=== PATIENT | male | born 1950 | race Caucasian/White ===

== ENCOUNTER 2017-09-22 13:47 | Observation (INO) | payer OTHER ==
--- NOTE | 2017-09-22 14:03 | PDOC ---
History of Present Illness - General Stated Complaint: DIZZINES Time Seen by Provider: 09/22/17 13:53 - History of Present Illness Initial Comments: 09/22/17 14:03 67 yo M with h/o HTN, and diverticulitis who arrives EMS with dizziness. 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 Also endorses multiple episodes of bilious, non bloody emesis. Symptom onset occurred while watching television. Patient reports controlled fall to ground and crawling to bathroom to vomit. Denies head/back/neck trauma. Denies anticoagulation. Denies fevers/chills, chest pain, SOB, weakness, sensory disturbances, tinnitus, urinary complaints, diarrhea, constipation, hematuria, BRBPR. Patient denies h/ o CVA/TIA, but daughter at bedside reports h/o multiple "mini strokes." MRI Lacunar infarct. Denies AR, CABG, Stent placement. PCP. Addie Barone. No neurologist . Past History - Past Medical History Allergies/Adverse Reactions: Allergies Allergy/AdvReac Type Severity Reaction Status Date / Time No Known Allergies Allergy Verified 09/22/17 15:27 Home Medications: Ambulatory Orders Amlodipine Besylate [Norvasc] 5 mg PO DAILY 02/14/13 Ibesartan/Hctz 1 dose PO DAILY 02/14/13 Lansoprazole [Prevacid] 15 mg PO DAILY 02/14/13 Unobtainable 09/22/17 CVA: Yes (tia) GI Disorders: Yes (hepatitis C) HTN: Yes - Suicide/Smoking/Psychosocial Hx Smoking Status: No Smoking History: Never smoked Number of Cigarettes Smoked Daily: 0 Review of Systems - Review of Systems Comments:: 09/22/17 14:42 GENERAL/CONSTITUTIONAL: No fever or chills. No weakness. HEAD, EYES, EARS, NOSE AND THROAT: No change in vision. No ear pain or discharge. No sore throat.- CARDIOVASCULAR: No chest pain or shortness of breath RESPIRATORY: No cough, wheezing, or hemoptysis. GASTROINTESTINAL: No nausea, vomiting, diarrhea or constipation. GENITOURINARY: No dysuria, frequency, or change in urination. MUSCULOSKELETAL: No joint or muscle swelling or pain. No neck or back pain. SKIN: No rash NEUROLOGIC: No headache, vertigo, loss of consciousness, or change in strength/ sensation. ENDOCRINE: No increased thirst. No abnormal weight change HEMATOLOGIC/LYMPHATIC: No anemia, easy bleeding, or history of blood clots. ALLERGIC/IMMUNOLOGIC: No hives or skin allergy. *Physical Exam - Physical Exam Comments: 09/22/17 14:42 GENERAL: Awake, alert, and fully oriented, in no acute distress HEAD: No signs of trauma, normocephalic, atraumatic EYES: PERRLA, EOMI, sclera anicteric, conjunctiva clear ENT: Left TM difficult to visualize d/t cerumen impactipon. Right TM normal to inspection. Hearing grossly normal, nares patent, oropharynx clear without exudates. Moist mucosa NECK: Normal ROM, supple, no lymphadenopathy, JVD, or masses LUNGS: No distress, speaks full sentences, clear to auscultation bilaterally HEART: Irregular rate. Normal hythm, normal S1 and S2, no murmurs, rubs or gallops, peripheral pulses normal and equal bilaterally. ABDOMEN: Soft, nontender, normoactive bowel sounds. No guarding, no rebound. No masses EXTREMITIES : Normal inspection, Normal range of motion, no edema. No clubbing or cyanosis. NEUROLOGICAL: Cranial nerves II through XII grossly intact.+ Horizontal nystagmus. WILFREDO intact. Absent dysmetria on FTN. Normal speech, gait not assesed. No focal sensorimotor deficits. SKIN: Warm, Dry, normal turgor, no rashes or lesions noted. Heart Score/ECG Review - History History: Slightly suspicious - Electrocardiogram EKG: Non specific repolarization disturbance - Age Age: >/= 65 - Risk Factors Risk Factors Heart Score: Yes Hx Hypercholesterolemia, Yes Hx Hypertension, Yes Hx Diabetes, Yes Smoking History Based on the list above the patient has:: >/=3 risk factors or Hx atherosclerotic disease - ECG Intrepretation Rhythm: PAC(s) - [place]: Normal - ST and T Early Repolarization: No Non Specific ST-T Wave changes: No - ECG Impressions Normal ECG: No Non-specific ST Elevation: No Ischemic Changes: No Bradycardia: Yes ED Treatment Course - LABORATORY CBC & Chemistry Diagram: 09/22/17 15:20 09/22/17 15:50 Medical Decision Making - Medical Decision Making 09/22/17 15:12 67 yo M with h/o HTN, diverticulitis s/p bowel ressection who arrives EMS with positional 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 Asx. with multiple episodes of bilious, non bloody emesis. Denies fevers/chills, chest pain, SOB, weakness, sensory disturbances, tinnitus, urinary complaints, abdominal pain, diarrhea, constipation, hematuria, BRBPR. MRI 08/25/2012 Lacunar infarct. Denies AR, CABG, Stent placement. Physical exam with bradycardia, horizontal nystagmus. Absent neuro deficits. PCP. Addie Barone. Peripheral vs. central vertigo. Vertigo present at rest, will obtain CT HEAD to evaluate for CVA. Clinical presentation most likely 2/2 BPPV d/t positional nature of vertigo. Will evaluate for electrolyte/metabolic disturbance, and infectious etiology. ED Course: CBC, CMP, UA Meclizine, Diphenhydramine EKG CT HEAD NON CON 09/22/17 15:[address] Monterroso who performed bowel ressection, he is not concerned of diverticulitis recurrence, and agrees with current ED treatment/course. 09/22/17 16:12 CBC/CMP: Unremarkable 09/22/17 16:33 EKG: Sinus bradycardia with scattered PAC's and absent LALITA, STD, or TWI. 09/22/17 16:34 CT HEAD: Small chronic right cortical infarct. No acute changes. 09/22/17 17:[address] Cuevas, he will follow this patient with MRI. 09/22/17 19:[address] Tomlin obs. *DC/Admit/Observation/Transfer Diagnosis at time of Disposition: Vertigo - Discharge Dispostion Disposition: HOME Condition at time of disposition: Stable Admit: Yes - Referrals - Patient Instructions - Post Discharge Activity
[2017-09-22] MEDS ORDERED: MECLIZINE HCL 25 MG TABLET (FP) PO ONE (14:34)
[2017-09-22] MEDS ORDERED: ONDANSETRON 4 MG/2 ML VIAL IVPB ONE (14:34)
--- NOTE | 2017-09-22 14:59 | PDOC ---
Attending Attestation - Resident Resident Name: Eliot Chackoson - ED Attending Attestation I have performed the following: I have examined & evaluated the patient, The case was reviewed & discussed with the resident, I agree w/resident's findings & plan, Exceptions are as noted - HPI HPI: 09/22/17 14:58 67y M hx HTN, +cva (lacunar infarcts), polysubstance abuse, of prior abdominal surgeries, presents with complaint of diverticulitis s/p sigmoid resection, presents with complaint of vertigo while watching TV. Pt endorses severe room spinning dizziness, nausea/vomiting, worse when he is moving his head but also present when he is sitting still. The pt denie sany headache, double vision, speech problems, neck pain, cp, palpitations, abd pain, back pain, tinitus, numbness.tingling, weakness. No prior hitsory of vertigo on exam the patient has a nonfocal physical exam: he does have a persistent horizontal nystagmus normal finger to nose, normal rapid alternating movements. strength intact and symmetric in upper/lower extremities sensation symmetric and intact in upper/lower extremities/face cn2-12 intact cardiac: bradycardic, slightly irregular pulm: cta abd: soft, minimal tenderness in RLQ (notes this is chronic, unchanged since his surgery last year) consider possible central vs pierpheral vertigo? pt treated with meclizine, zofran will ck labs to ro anemia consider cardiac cause as pt is notably bradycardic ct head to r/o cva, but janette need further imaging to r/o posterior event no neck pain , bruit or other neuro symptoms to suggest vertebral dissection - Physicial Exam PE: 09/23/17 08:05 see above - Medical Decision Making 09/23/17 08:05 see above Heart Score/ECG Review - ECG Impressions Comment:: 09/22/17 16:31 Twelve-lead EKG was performed and reviewed by me. Rate of [address]-T wave changes suggestive of acute ischemia Consistent HI interval no signs of a heart block sinus bradycardia with PACs
[2017-09-22] MEDS ORDERED: MECLIZINE HCL 25 MG TABLET (FP) ONE (15:11)
[2017-09-22] MEDS ORDERED: ONDANSETRON 4 MG/2 ML VIAL ONE (15:11)
[2017-09-22 15:53] LABS: BASO % 0.7 % (0-2.0); EOS % 1.2 % (0-4.5); HEMATOCRIT 45.6 % (35.4-49); HEMOGLOBIN 15.8 GM/dL (11.7-16.9); LYMPH % 15.7 % (8-40); MCH 33.8 pg (25.7-33.7); MCHC 34.5 g/dl (32.0-35.9); MEAN CELL VOLUME 97.9 fl (80-96); MEAN PLT VOLUME 10.2 fl (7.5-11.1); MONO % 7.8 % (3.8-10.2); NEUT % 74.6 % (42.8-82.8); PLATELET COUNT 133 K/MM3 (134-434); RBC 4.66 M/mm3 (4.00-5.60); RDW 13.1 % (11.9-15.9); WHITE BLOOD COUNT 8.2 K/mm3 (4.0-10.0)
[2017-09-22 16:08] LABS: INR 1.12 (0.82-1.09); PROTHROMBIN TIME (PATIENT) 12.7 SEC (9.98-11.88)
[2017-09-22 16:27] LABS: URINE APPEARANCE CLOUDY; URINE BILIRUBIN NEGATIVE (NEGATIVE); URINE BLOOD NEGATIVE (NEGATIVE); URINE COLOR YELLOW; URINE GLUCOSE (UA) NEGATIVE (NEGATIVE); URINE KETONE NEGATIVE (NEGATIVE); URINE LEUK ESTERASE NEGATIVE (NEGATIVE); URINE NITRITE NEGATIVE (NEGATIVE); URINE PROTEIN NEGATIVE (NEGATIVE); URINE UROBILINOGEN NEGATIVE mg/dL (0.2-1.0)
[2017-09-22 16:35] LABS: ALBUMIN 3.9 g/dl (3.4-5.0); ALK PHOS 56 U/L (45-117); BILIRUBIN,TOTAL 0.6 mg/dL (0.2-1.0); BLOOD UREA NITROGEN 16 mg/dL (7-18); CALCIUM 8.7 mg/dL (8.5-10.1); CO2 29 mmol/L (21-32); GLUCOSE,RANDOM 102 mg/dL (74-106); SGPT/ALT 17 U/L (12-78); SODIUM 140 mmol/L (136-145); TOT PROT 6.7 g/dl (6.4-8.2)
[2017-09-22 16:36] LABS: ANION GAP 7 (8-16); CHLORIDE 104 mmol/L (98-107); POTASSIUM 4.7 mmol/L (3.5-5.1); SGOT/AST 18 U/L (15-37)
[2017-09-22] MEDS ORDERED: ASPIRIN 81 MG CHEWABLE TABLETS PO ONE (16:40)
[2017-09-22] MEDS ORDERED: ASPIRIN 81 MG CHEWABLE TABLETS ONE (17:18)
[2017-09-22] MEDS ORDERED: diazePAM 5 MG TABLET PO ONE (17:55)
[2017-09-22] MEDS ORDERED: diazePAM 5 MG TABLET ONE (18:16)
--- NOTE | 2017-09-22 18:20 | HP ---
CHIEF COMPLAINT: Sudden onset vertigo and vomiting PCP: Dr. Barone HISTORY OF PRESENT ILLNESS: 67 year-old male with a PMH significant for HTN, HLD, CVA/TIA, and diverticulitis s/p sigmoid resection (2017). Presents to the ED with a complaint of vertigo. At around 1:00pm, while watching TV, patient developed severe room-spinning dizziness. He became nauseous and had multiple bouts of vomiting. The dizziness is worse with movement, but is also present when staying still. There was no prodrome. Denies headache, double vision, speech problems, neck pain, tinnitus, numbness, tingling, and weakness. Denies chest pain, palpitations, SOB, [place], and lower extremity edema. ER course was notable for: (1) CT head: no acute process (2) ECG sinus philip @ 49bpm (3) ASA 243mg x 1 Recent Travel: No PAST MEDICAL HISTORY: Hypertension Hyperlipidemia CVA/TIA Polysubstance abuse Hepatitis C Diverticulitis PAST SURGICAL HISTORY: Sigmoid resection Social History: Smoking: denies Alcohol: social Drugs: denies Family History: Allergies No Known Allergies Allergy (Verified 09/22/17 15:27) HOME MEDICATIONS: Home Medications Medication Instructions Recorded Amlodipine Besylate [Norvasc] 5 mg PO DAILY 02/14/13 Ibesartan/Hctz 1 dose PO DAILY 02/14/13 Lansoprazole [Prevacid] 15 mg PO DAILY 02/14/13 Unobtainable 09/22/17 REVIEW OF SYSTEMS CONSTITUTIONAL: Absent: fever, chills, diaphoresis, generalized weakness, malaise, loss of appetite, weight change HEENT: Absent: rhinorrhea, nasal congestion, throat pain, throat swelling, difficulty swallowing, mouth swelling, ear pain, eye pain, visual changes CARDIOVASCULAR: Absent: chest pain, syncope, palpitations, irregular heart rate, lightheadedness , peripheral edema RESPIRATORY: Absent: cough, shortness of breath, dyspnea with exertion, orthopnea, wheezing, stridor, hemoptysis GASTROINTESTINAL: Absent: abdominal pain, abdominal distension, nausea, vomiting, diarrhea, constipation, melena, hematochezia GENITOURINARY: Absent: dysuria, frequency, urgency, hesitancy, hematuria, flank pain, genital pain MUSCULOSKELETAL: Absent: myalgia, arthralgia, joint swelling, back pain, neck pain SKIN: Absent: rash, itching, pallor HEMATOLOGIC/IMMUNOLOGIC: Absent: easy bleeding, easy bruising, lymphadenopathy, frequent infections ENDOCRINE: Absent: unexplained weight gain, unexplained weight loss, heat intolerance, cold intolerance NEUROLOGIC: +room spinning dizziness with associated nausea and vomiting Absent: headache, focal weakness or paresthesias, unsteady gait, seizure, mental status changes, bladder or bowel incontinence PSYCHIATRIC: Absent: anxiety, depression, suicidal or homicidal ideation, hallucinations. PHYSICAL EXAMINATION Vital Signs - 24 hr 09/22/17 09/22/17 13:55 17:55 Temperature 97.2 F L Pulse Rate 79 Pulse Rate [ 49 L Apical] Respiratory 18 Rate Blood Pressure 174/84 Blood Pressure 159/88 [Left Arm] O2 Sat by Pulse 95 99 Oximetry (%) GENERAL: Awake, alert, and fully oriented, in no acute distress. HEAD: Normal with no signs of trauma. EYES: Pupils equal, round and reactive to light, extraocular movements intact, sclera anicteric, conjunctiva clear. No lid lag. EARS, NOSE, THROAT: Ears normal, nares patent, oropharynx clear without exudates. Moist mucous membranes. NECK: ROM not tested. No lymphadenopathy, JVD, or masses. LUNGS: Breath sounds equal, clear to auscultation bilaterally. No wheezes, and no crackles. No accessory muscle use. HEART: Regular rate and rhythm, normal S1 and S2 ABDOMEN: Soft, nontender, not distended, normoactive bowel sounds, no guarding, no rebound, no masses. MUSCULOSKELETAL: Normal range of motion at all joints. No bony deformities or tenderness. No CVA tenderness. UPPER EXTREMITIES: 2+ pulses, warm, well-perfused. No cyanosis. No clubbing. No peripheral edema. LOWER EXTREMITIES: 2+ pulses, warm, well-perfused. No calf tenderness. No peripheral edema. NEUROLOGICAL: Cranial nerves II-XII intact. Normal speech. +Finger to nose. Mild nystagamus. Unable to stand due to dizziness. PSYCHIATRIC: Cooperative. Good eye contact. Appropriate mood and affect. SKIN: Warm, dry, normal turgor Laboratory Results - last 24 hr 09/22/17 09/22/17 09/22/17 15:20 15:20 15:50 WBC 8.2 D RBC 4.66 Hgb 15.8 Hct 45.6 MCV 97.9 H MCH 33.8 H MCHC 34.5 RDW 13.1 Plt Count 133 L D MPV 10.2 Neutrophils % 74.6 Lymphocytes % 15.7 Monocytes % 7.8 Eosinophils % 1.2 Basophils % 0.7 PT with INR 12.70 H INR 1.12 Sodium 140 Potassium 4.7 D Chloride 104 Carbon Dioxide 29 Anion Gap 7 L BUN 16 Creatinine 1.0 Creat Clearance w eGFR > 60 Random Glucose 102 Calcium 8.7 Total Bilirubin 0.6 AST 18 D ALT 17 D Alkaline Phosphatase 56 D Total Protein 6.7 Albumin 3.9 Urine Color Urine Appearance Urine pH Ur Specific [place] Urine Protein Urine Glucose (UA) Urine Ketones Urine Blood Urine Nitrite Urine Bilirubin Urine Urobilinogen Ur Leukocyte Esterase 09/22/17 16:10 WBC RBC Hgb Hct MCV MCH MCHC RDW Plt Count MPV Neutrophils % Lymphocytes % Monocytes % Eosinophils % Basophils % PT with INR INR Sodium Potassium Chloride Carbon Dioxide Anion Gap BUN Creatinine Creat Clearance w eGFR Random Glucose Calcium Total Bilirubin AST ALT Alkaline Phosphatase Total Protein Albumin Urine Color Yellow Urine Appearance Cloudy Urine pH 7.0 Ur Specific [place] 1.013 Urine Protein Negative Urine Glucose (UA) Negative Urine Ketones Negative Urine Blood Negative Urine Nitrite Negative Urine Bilirubin Negative Urine Urobilinogen Negative Ur Leukocyte Esterase Negative ASSESSMENT/PLAN 67 year-old male with a PMH significant for HTN, HLD, CVA/TIA, and diverticulitis s/p sigmoid resection. Presents to the ED with a complaint of vertigo with associated nausea and vomiting. Vertigo with nausea/vomiting --symptoms unrelieved with meclizine valium, benadryl, Zofran h/o CVA/TIA --MRI 2011: right periventricular white matter old lacunar infarct --CT head today: small chronic right frontal subcortical infarct, no acute pathology --MRI/MRA brain w/and w/o contrast ordered --Dr. Chowdhury contacted by ED, will consult --full dose ASA given; start statin --US carotids --Echo Hypertension --hold antihypertensives for now, BP 159/88 Hyperlipidemia --start Lipitor Diverticulosis s/p sigmoid resection --no acute issues
[2017-09-22] MEDS ORDERED: ATORVASTATIN CA 80 MG TABLET (FP) PO STA (19:06)
[2017-09-22 19:42] LABS: COCAINE, UR NEGATIVE ng/ml (CUTOFF=300); METHADONE, UR NEGATIVE ng/ml (CUTOFF=300); OPIATES, URI NEGATIVE ng/ml (CUTOFF=300); PHENCYCLIDINE,URINE NEGATIVE ng/ml (CUTOFF=25); URINE AMPHETAMINES NEGATIVE ng/ml (CUTOFF=500); URINE BARBITURATES NEGATIVE ng/ml (CUTOFF=200); URINE BENZODIAZEPINES NEGATIVE ng/ml (CUTOFF=200)
[2017-09-23 08:28] LABS: BASO % 0.8 % (0-2.0); EOS % 2.3 % (0-4.5); HEMATOCRIT 50.1 % (35.4-49); HEMOGLOBIN 16.8 GM/dL (11.7-16.9); LYMPH % 32.9 % (8-40); MCH 33.5 pg (25.7-33.7); MCHC 33.5 g/dl (32.0-35.9); MEAN PLT VOLUME 10.1 fl (7.5-11.1); MONO % 9.4 % (3.8-10.2); NEUT % 54.6 % (42.8-82.8); PLATELET COUNT 97 K/MM3 (134-434); RBC 5.01 M/mm3 (4.00-5.60); RDW 13.2 % (11.9-15.9); WHITE BLOOD COUNT 6.8 K/mm3 (4.0-10.0)
[2017-09-23 08:35] LABS: INR 1.05 (0.82-1.09); PROTHROMBIN TIME (PATIENT) 11.9 SEC (9.98-11.88)
[2017-09-23 08:38] LABS: ACTIVATED PTT 28.2 SECONDS (26.9-34.4)
[2017-09-23 08:47] LABS: ALBUMIN 3.8 g/dl (3.4-5.0); ANION GAP 13 (8-16); BILIRUBIN,TOTAL 0.8 mg/dL (0.2-1.0); BLOOD UREA NITROGEN 14 mg/dL (7-18); CALCIUM 9.1 mg/dL (8.5-10.1); CHLORIDE 105 mmol/L (98-107); CO2 22 mmol/L (21-32); CREATININE 1.2 mg/dL (0.7-1.3); GLUCOSE,RANDOM 89 mg/dL (74-106); MAGNESIUM 2.3 mg/dL (1.8-2.4); POTASSIUM 4.1 mmol/L (3.5-5.1); SGOT/AST 18 U/L (15-37); SGPT/ALT 20 U/L (12-78); SODIUM 140 mmol/L (136-145); TOT PROT 6.8 g/dl (6.4-8.2)
[2017-09-23 08:48] LABS: ALK PHOS 56 U/L (45-117)
--- NOTE | 2017-09-23 08:57 | DS ---
Physical Examination Vital Signs: Vital Signs Temperature 97.8 F 09/23/17 01:58 Pulse Rate 43 L 09/23/17 07:01 Respiratory Rate 15 09/23/17 07:01 Blood Pressure 154/80 09/23/17 07:01 O2 Sat by Pulse Oximetry (%) 100 09/23/17 07:01 Findings/Remarks: still with periods of vertigo better than yesterday Cardiovascular: Yes: Regular Rate and Rhythm Respiratory: Yes: Regular, CTA Bilaterally Gastrointestinal: Yes: Normal Bowel Sounds, Soft Neurological: Yes: Alert, Oriented, Other (vertigo) Labs: CBC, BMP 09/23/17 07:10 09/23/17 06:30 Discharge Summary Reason For Visit: SYNCOPE Current Active Problems Vertigo (Acute) Hospital Course: 67 year-old male with a PMH significant for HTN, HLD, CVA/TIA, and diverticulitis s/p sigmoid resection. Presents to the ED with a complaint of vertigo with associated nausea and vomiting. Vertigo with nausea/vomiting --symptoms unrelieved with meclizine valium, benadryl, Zofran h/o CVA/TIA --MRI 2012: right periventricular white matter old lacunar infarct --CT head today: small chronic right frontal subcortical infarct, no acute pathology --MRI/MRA brain w/and w/o contrast negative for new cva --Dr. Chowdhury evaluated pt and cleared for dc --asa --US carotids as outpatient --Echo Hypertension --resume antihypertensives for now, BP 159/88 Hyperlipidemia --start Lipitor Diverticulosis s/p sigmoid resection --no acute issues Condition: Stable - Instructions Referrals: Addie Baroen MD [Primary Care Provider] - 09/24/17 Disposition: HOME - Home Medications Comprehensive Discharge Medication List: Ambulatory Orders Amlodipine Besylate [Norvasc -] 5 mg PO DAILY 02/14/13 Ibesartan/Hctz 1 dose PO DAILY 02/14/13 Lansoprazole [Prevacid -] 15 mg PO DAILY 02/14/13 Aspirin Coated [Ecotrin -] 81 mg PO DAILY tablet.ec 09/23/17 Meclizine HCl [Antivert -] 25 mg PO TID #90 tablet 09/23/17
--- NOTE | 2017-09-23 09:11 | CON.NEURO ---
Consult - Smoking History Smoking history: Never smoked Aproximately how many cigarettes per day: 0 Home Medications - Allergies Allergies/Adverse Reactions: Allergies Allergy/AdvReac Type Severity Reaction Status Date / Time No Known Allergies Allergy Verified 09/22/17 15:27 - Home Medications Home Medications: Ambulatory Orders Amlodipine Besylate [Norvasc -] 5 mg PO DAILY 02/14/13 Ibesartan/Hctz 1 dose PO DAILY 02/14/13 Lansoprazole [Prevacid -] 15 mg PO DAILY 02/14/13 Aspirin Coated [Ecotrin -] 81 mg PO DAILY tablet.ec 09/23/17 Meclizine HCl [Antivert -] 25 mg PO TID #90 tablet 09/23/17 Physical Exam-Neuro Vital Signs: Vital Signs Temperature 97.8 F 09/23/17 01:58 Pulse Rate 43 L 09/23/17 07:01 Respiratory Rate 15 09/23/17 07:01 Blood Pressure 154/80 09/23/17 07:01 O2 Sat by Pulse Oximetry (%) 100 09/23/17 07:01 Labs: CBC, BMP 09/23/17 07:10 09/23/17 06:30 INR, PTT INR 1.05 (0.82-1.09) 09/23/17 06:30 Assessment/Plan cc Episode of Vertigo HPI 67 year old male hisotry of HTN, HLD , CVA/TIA presented to hospital for severe vetigo senation for one day. He denies dysphagia, dysarthria, loc, weakness or numbness. He i sgetting better. His Blood pressure was slightly high during admission. He did have ct head , mri of brain which was normal. Past Medical History as above Hisotyr of Sigmoid resection NKD ROS,FH,SH HOME MEDICATIONS: Home Medications Medication Instructions Recorded Amlodipine Besylate [Norvasc] 5 mg PO DAILY 02/14/13 Ibesartan/Hctz 1 dose PO DAILY 02/14/13 Lansoprazole [Prevacid] 15 mg PO DAILY 02/14/13 Unobtainable 09/22/17 Neurological Exmaination Alert oriented x 3 , speech is normal able to follow command eomi , pupils is reactive , there is nystagmus on left side gaze strength is normal, sensation is normal FTN , HTN is normal CT head and mri of brain is normal Assesment- Most urena Benign Positional Vertigo , no evidence of cerebellar dysfunction or Brain stem infarct Plan- Can follow up with me outpatient - Meclizine prn -Advice few days of rest - May see PT if symptoms persits Thanking you so much Román Chowdhury MD
[2017-09-23] MEDS ORDERED: ASPIRIN COATED 81 MG TABLET.EC PO SCH (10:00)
--- NOTE | 2017-09-23 10:31 | EKG ---
Test Reason : Blood Pressure : / mmHG Vent. Rate : 048 BPM Atrial Rate : 048 BPM P-R Int : 154 ms QRS Dur : 084 ms QT Int : 506 ms P-R-T Axes : 033 026 009 degrees QTc Int : 452 ms SINUS BRADYCARDIA WITH SINUS ARRHYTHMIA MODERATE VOLTAGE CRITERIA FOR LVH, MAY BE NORMAL VARIANT NONSPECIFIC ST ABNORMALITY ABNORMAL ECG WHEN COMPARED WITH ECG OF 22-SEP-2017 15:51, PREMATURE ATRIAL COMPLEXES ARE NO LONGER PRESENT Confirmed by JOHN FRAZIER, RASHEED ([id number]) on 09/23/2017 10:30:33 AM Referred By: Jaquelin CRUZ Confirmed By:RASHEED LOPEZ MD
[2017-09-23] MEDS ORDERED: MECLIZINE HCL 25 MG TABLET (FP) PO ONE (10:45)
[2017-09-23] MEDS ORDERED: ASPIRIN COATED 81 MG TABLET.EC ONE (10:47)
[2017-09-23] MEDS ORDERED: MECLIZINE HCL 25 MG TABLET (FP) ONE (10:47)
--- NOTE | 2017-09-23 10:51 | EKG ---
Test Reason : Blood Pressure : / mmHG Vent. Rate : 049 BPM Atrial Rate : 049 BPM P-R Int : 154 ms QRS Dur : 086 ms QT Int : 532 ms P-R-T Axes : 042 023 008 degrees QTc Int : 480 ms SINUS BRADYCARDIA WITH PREMATURE ATRIAL COMPLEXES NONSPECIFIC ST AND T WAVE ABNORMALITY PROLONGED QT ABNORMAL ECG WHEN COMPARED WITH ECG OF 14-FEB-2013 12:13, PREMATURE ATRIAL COMPLEXES ARE NOW PRESENT NONSPECIFIC T WAVE ABNORMALITY HAS REPLACED INVERTED T WAVES IN INFERIOR LEADS NONSPECIFIC T WAVE ABNORMALITY NOW EVIDENT IN LATERAL LEADS QT HAS LENGTHENED Confirmed by MD Dick, Michael ([id number]) on 09/23/2017 10:51:24 AM Referred By: Confirmed By:Michael Jennings MD
[2017-09-23 12:06] LABS: PLATELET ESTIMATE DECREASED
--- NOTE | 2017-09-23 13:51 | CON.CARD ---
Consult Consult Specialty:: Cardiology Reason for Consultation:: Dizziness - History of Present Illness Chief Complaint: Vertigo History of Present Illness: This is a 67 year old male with a PMH of HTN. He presents with sudden onset vertigo with the room spinning, worse with head movement. This was associated with vomiting. Patient reports controlled fall to ground and crawling to bathroom to vomit. The symptoms have resolved. His present HR is 48 BPM, minimum HR noted was 43 BPM. - Smoking History Smoking history: Never smoked Aproximately how many cigarettes per day: 0 Home Medications - Allergies Allergies/Adverse Reactions: Allergies Allergy/AdvReac Type Severity Reaction Status Date / Time No Known Allergies Allergy Verified 09/22/17 15:27 - Home Medications Home Medications: Ambulatory Orders Ibesartan/Hctz 1 dose PO DAILY 02/14/13 Lansoprazole [Prevacid -] 15 mg PO DAILY 02/14/13 Aspirin Coated [Ecotrin -] 81 mg PO DAILY tablet.ec 09/23/17 Meclizine HCl [Antivert -] 25 mg PO TID #90 tablet 09/23/17 Review of Systems Unable to obtain ROS, reason: As per HPI Vital Signs: Vital Signs Temperature 97.8 F 09/23/17 01:58 Pulse Rate 48 L 09/23/17 10:00 Respiratory Rate 16 09/23/17 10:00 Blood Pressure 166/90 09/23/17 10:00 O2 Sat by Pulse Oximetry (%) 96 09/23/17 10:00 Constitutional: Yes: Well Nourished HENT: Yes: WNL Neck: Yes: WNL Respiratory: Yes: CTA Bilaterally Gastrointestinal: Yes: Soft Cardiovascular: Yes: Regular Rate and Rhythm (NL S1s2, no MRHG) JVD: No Extremities: Yes: WNL Edema: No Neurological: Yes: Alert, Oriented (Grossly non focal) - Other Data Labs, Other Data: CBC, BMP 09/23/17 07:10 09/23/17 06:30 INR, PTT INR 1.05 (0.82-1.09) 09/23/17 06:30 Assessment/Plan Dizziness Positional Vertigo Heart rates are slow but are not the likely cause of his symptoms (they may be secondary to high vagal tone from recent nausea/vomitting) The bradycardia can be followed as an outpatient with an Event Monitor and a an exercise stress test to document augmentation of the heart rates. The patient told me he is followed by a Ditch [facility] in [place].
[2017-09-23 14:09] VITALS: BMI 27.3
[2017-09-23 15:27] VITALS: BP 166/90; PULSE 50; TEMP 98.1
[2017-09-23] MEDS ORDERED: ATORVASTATIN CA 80 MG TABLET (FP) PO SCH (22:00)
== END 2017-09-23 16:00 | disposition home or self-care (01) ==
LOC: JER 13:47 → JERBED 17:35
PROVIDERS: ADMIT Family Medicine; ATTEND Family Medicine
PROC: 3E033GC Introduction of Other Therapeutic Substance into Peripheral Vein, Percutaneous Approach (ICD-10-PCS; principal; 2017-09-22)
DX: R42 Dizziness and giddiness (principal); R11.2 Nausea with vomiting, unspecified; I10 Essential (primary) hypertension; E78.5 Hyperlipidemia, unspecified; B18.2 Chronic viral hepatitis C; Z86.73 Personal history of transient ischemic attack (TIA), and cerebral infarction without residual deficits
CPT/HCPCS: 36415; 70450-TC; 70544-TC; 70551-TC; 71045-TC; 80053; 80307; 81003; 83735; 85025; 85610; 85730; 93005; 93010; 93306-TC; 93880-TC; 96374; 96375; 99285-25; G0378

== ENCOUNTER 2020-02-03 18:40 | Observation (INO) | payer OTHER ==
[2020-02-03 20:18] LABS: ALBUMIN 4.5 g/dl (3.4-5.0); BILIRUBIN,TOTAL 1.2 mg/dl (0.2-1); CALCIUM 9.7 mg/dl (8.5-10); POTASSIUM 4.3 mmol/L (3.5-5.1); TOT PROT 7.4 g/dl (6.4-8.2)
[2020-02-03 20:27] LABS: BASO % 0.9 % (0-2.0); EOS % 1.8 % (0-4.5); HEMATOCRIT 44.6 % (35.4-49); HEMOGLOBIN 15.9 GM/dl (11.7-16.9); LYMPH % 24.6 % (8-40); MCH 34.2 pg (25.7-33.7); MCHC 35.6 g/dl (32.0-35.9); MEAN CELL VOLUME 96.2 fl (80-96); MEAN PLT VOLUME 9.1 fl (7.5-11.1); MONO % 9.7 % (3.8-10.2); PLATELET COUNT 185 K/MM3 (134-434); RBC 4.63 M/mm3 (4.00-5.60); RDW 11.8 % (11.9-15.9); WHITE BLOOD COUNT 6.8 K/mm3 (4.0-10.8)
--- NOTE | 2020-02-03 20:32 | PDOC ---
Documentation entered by Sarina Arredondo SCRIBE, acting as scribe for Kim Gaytan MD. Kim Gaytan MD: This documentation has been prepared by the Arnulfo lazaro Nirvannie, SCRIBE, under my direction and personally reviewed by me in its entirety. I confirm that the documentation accurately reflects all work, treatment, procedures, and medical decision making performed by me. History of Present Illness - General Chief Complaint: Chest Pain Stated Complaint: CHEST PAIN Time Seen by Provider: 02/03/20 19:08 History Source: Patient Exam Limitations: No Limitations - History of Present Illness Initial Comments: 02/03/20 19:59 HPI: The patient is a 69 year old male with a significant past medical history of hypertension, hyperlipidemia, CVA/TIA, Hepatitis C, and diverticulitis who pre sents to the ED with 1 day of constant chest pain. As per patient, his chest pain onset this morning awakening him from his slumber with associated intermittent sharp/stabbing sensations lasting a few seconds and mild shortness of breath. He describes the pain as worsening with exertion, deep inspiration, and palpation to the midsternal chest. Patient was evaluated in urgent care prior to his arrival to which time he was advised to report to the ED for further evaluation after EKG. The patient follows with cardiology and was told his mitral valve does not close all the way and his heart skips a beat. He denies any diaphoresis or palpitations. PAST MEDICAL HISTORY: Hypertension, hyperlipidemia, CVA/TIA, Hepatitis C, and diverticulitis PAST SURGICAL HISTORY: Sigmoid resection FAMILY HISTORY: Paternal secondary to NH at age 49. SOCIAL HISTORY: Pt lives with family and is employed. MEDICATIONS: reviewed ALLERGIES: As per nursing notes ROS: General: No fevers or chills, no weakness, no weight loss HEENT: No change in vision. No sore throat,. No ear pain CardioVascular: +chest pain +shortness of breath Respiratory: No cough, or wheezing. Gastrointestinal: no nausea, vomiting, diarrhea or constipation, No rectal bleeding Genitourinary: No dysuria, hematuria, or frequency Musculoskeletal: No joint or muscle pain or swelling Neurologic: No headache, vertigo, dizziness or loss of consciousness Psychiatric: nor depression Skin: No rashes or easy bruising Endocrine: no increased thirst or abnormal weight change Allergic: no skin or latex allergy All other systems reviewed and normal Physical Exam: General: Well-nourished well-developed individual, no acute distress HEENT: Throat: Normal, tonsils normal, no erythema or exudate Neck: Supple, no meningeal signs, no lymphadenopathy Eyes:Pupils equal reactive and round, extraocular motion intact Chest: +Reproducible tenderness on palpation to the subxiphoid area. Cardiac: S1-S2 normal, regular rate and rhythm, no murmurs rubs or gallops Respiratory: Lungs clear to auscultation bilateral Abdomen: Soft, nondistended, normal bowel sounds, nontender to palpation diffusely Extremities: Warm, dry, no cyanosis, clubbing, or edema Skin: No rashes Neuro: Alert and oriented x3, nonfocal exam, grossly intact, normal gait Psych: Normal mood and affect 02/03/20 20:31 This is a 69-year-old male with multiple cardiac risk factors who denies any specific cardiac history. Patient however did have a echo and cardiac stress test back in 2018 secondary to some chest pain that he had. Patient comes in complaining of constant chest pain since this morning that woke him up with intermittent exacerbations that last a few seconds of a sharp component. Patient says he has some mild shortness of breath but denies any cough, congestion, nausea or diaphoresis. Patient denies any radiation. Pain is reproduced on palpation and is localized to the subxiphoid area. Otherwise hip exam was normal. Patient has a heart score of 5 based upon his risk factors and age Patient will be admitted to an observation bed and ruled out, Chest x-ray shows a cardiomegaly otherwise no acute pathology EKG shows a sinus bradycardia with some premature supraventricular complexes otherwise no acute ST-T wave changes and otherwise normal. Past History - Past Medical History Allergies/Adverse Reactions: Allergies Allergy/AdvReac Type Severity Reaction Status Date / Time No Known Allergies Allergy Verified 02/03/20 19:09 Home Medications: Ambulatory Orders Amlodipine Besylate 10 mg PO DAILY 02/03/20 Aspirin [Aspirin EC] 650 mg PO ONCE 02/03/20 Hydrochlorothiazide 25 mg PO DAILY 02/03/20 Irbesartan [Avapro] 300 mg PO DAILY 02/03/20 Potassium Chloride [K-Dur -] 10 meq PO DAILY 02/03/20 CVA: Yes (tia) COPD: No Diabetes: Yes GI Disorders: Yes (hepatitis C) HTN: Yes Hypercholesterolemia: Yes - Psycho Social/Smoking Cessation Hx Smoking Status: No Smoking History: Never smoked Number of Cigarettes Smoked Daily: 0 Cardiac Specific PMH - Complaint Specific PMHX Abdominal Aortic Aneurysm: No Angina: No Cardiac Arrhythmia: No Cardiac Stent: No GERD: Yes Pacemaker: No Pulmonary Embolus: No Valvular Heart Disease: No Peripheral Vascular Disease: No *Physical Exam - Vital Signs Last Vital Signs Temp Pulse Resp BP Pulse Ox 98.4 F 66 15 152/73 98 02/03/20 18:44 02/03/20 18:44 02/03/20 18:44 02/03/20 18:44 02/03/20 18:44 Heart Score/ECG Review - History History: Slightly suspicious - Electrocardiogram EKG: Non specific repolarization disturbance - Age Age: >/= 65 - Risk Factors Risk Factors Heart Score: Yes Hx Hypercholesterolemia, Yes Hx Hypertension, Yes Positive family hx of cardiac disease Based on the list above the patient has:: >/=3 risk factors or Hx atherosclerotic disease - Troponin Troponin: </= normal limit - Score Heart Score - Total: 5 ED Treatment Course - LABORATORY CBC & Chemistry Diagram: 02/03/20 19:45 02/03/20 19:45 - ADDITIONAL ORDERS Additional order review: Laboratory Results 02/03/20 02/03/20 02/03/20 20:20 19:45 19:45 Sodium 141 Potassium 4.3 Chloride 103 Carbon Dioxide 27 Anion Gap 11 BUN 17.0 Creatinine 1.0 Est GFR (CKD-EPI)AfAm 87.99 Est GFR (CKD-EPI)NonAf 75.92 Random Glucose 103 Calcium 9.7 Total Bilirubin 1.2 H AST 17 ALT 22 Alkaline Phosphatase 55 Creatine Kinase 75 Troponin I < 0.03 Total Protein 7.4 Albumin 4.5 Urine Color Yellow Urine Appearance Clear Urine pH 6.0 Urine Protein Negative Urine Glucose (UA) Negative Urine Ketones Negative Urine Blood Negative Urine Nitrite Negative Urine Bilirubin Negative Urine Urobilinogen 0.2 Ur Leukocyte Esterase Negative 02/03/20 19:45 RBC 4.63 MCV 96.2 H MCHC 35.6 RDW 11.8 L MPV 9.1 Neutrophils % 63.0 Lymphocytes % 24.6 Monocytes % 9.7 Eosinophils % 1.8 Basophils % 0.9 - RADIOLOGY Radiology Studies Ordered: Category Date Time Status CHEST X-RAY PORTABLE* [RAD] Stat Radiology 02/03/20 19:23 Taken Discharge - Discharge Information Problems reviewed: Yes Clinical Impression/Diagnosis: Chest pain at rest Condition: Good - Admission Yes - Follow up/Referral Referrals: Addie Barone MD [Primary Care Provider] - - Patient Discharge Instructions - Post Discharge Activity
--- NOTE | 2020-02-03 22:16 | HP ---
CHIEF COMPLAINT: Chest pain PCP: HISTORY OF PRESENT ILLNESS: The patient is a 69 year old male with a significant past medical history of hypertension, hyperlipidemia, CVA/TIA, Hepatitis C, and diverticulitis s/p sigmoid resection (2017) who presents to the ED with 1 day of intermittent midsternal chest pain. As per patient, his chest pain onset this morning 3-4am awakening him with associated intermittent sharp/stabbing sensations lasting a few seconds and mild shortness of breath. He describes the pain as worsening with exertion, deep inspiration, and palpation to the midsternal chest, mild dizziness. pt reports last seen by Dimmer Board Operator 2 years ago when admitted in [facility]. has not followed up with [facility]mer Board Operator as outpatient. pt denies chills, fever, headache, abd pain, diarrhea, constipation, dysuria, urinary frequency, denies left arm pain or numbness ER course was notable for: (1) EKG sinus philip (2) CBC, CMP unremarkable (3) 1st trop < 0.03 Recent Travel: none PAST MEDICAL HISTORY: hypertension, GERD, hyperlipidemia, CVA/TIA, Hepatitis C, and diverticulitis s/p sigmoid resection (2017) PAST SURGICAL HISTORY: Bowel resection 2017 right knee sx hernia repair x 5 R wrist reconstruction FAMILY HISTORY: father from [place] age 49, mother -Lung cancer Social History: Smoking: denies Alcohol:denies Drugs: denies Allergies No Known Allergies Allergy (Verified 02/03/20 19:09) HOME MEDICATIONS: Home Medications Medication Instructions Recorded Amlodipine Besylate 10 mg PO DAILY 02/03/20 Aspirin [Aspirin EC] 650 mg PO ONCE 02/03/20 Hydrochlorothiazide 25 mg PO DAILY 02/03/20 Irbesartan [Avapro] 300 mg PO DAILY 02/03/20 Potassium Chloride [K-Dur -] 10 meq PO DAILY 02/03/20 REVIEW OF SYSTEMS CONSTITUTIONAL: Absent: fever, chills, diaphoresis, generalized weakness, malaise, loss of appetite, weight change HEENT: Absent: rhinorrhea, nasal congestion, throat pain, throat swelling, difficulty swallowing, mouth swelling, ear pain, eye pain, visual changes CARDIOVASCULAR: +intermittent chest pain, middle of chest Absent: syncope, palpitations, irregular heart rate, lightheadedness, peripheral edema RESPIRATORY: mild sob, Absent: cough, shortness of breath, dyspnea with exertion, orthopnea, wheezing, stridor, hemoptysis GASTROINTESTINAL: Absent: abdominal pain, abdominal distension, nausea, vomiting, diarrhea, constipation, melena, hematochezia GENITOURINARY: Absent: dysuria, frequency, urgency, hesitancy, hematuria, flank pain, genital pain MUSCULOSKELETAL: Absent: myalgia, arthralgia, joint swelling, back pain, neck pain SKIN: Absent: rash, itching, pallor HEMATOLOGIC/IMMUNOLOGIC: Absent: easy bleeding, easy bruising, lymphadenopathy, frequent infections ENDOCRINE: Absent: unexplained weight gain, unexplained weight loss, heat intolerance, cold intolerance NEUROLOGIC: Absent: headache, focal weakness or paresthesias, dizziness, unsteady gait, seizure, mental status changes, bladder or bowel incontinence PSYCHIATRIC: Absent: anxiety, depression, suicidal or homicidal ideation, hallucinations. PHYSICAL EXAMINATION Vital Signs - 24 hr 02/03/20 02/03/20 18:44 21:54 Temperature 98.4 F 97.9 F Pulse Rate 66 95 H Respiratory 15 18 Rate Blood Pressure 152/73 154/69 O2 Sat by Pulse 98 97 Oximetry (%) GENERAL: Awake, alert, and fully oriented, in no acute distress. HEAD: Normal with no signs of trauma. EYES: Pupils equal, round and reactive to light, extraocular movements intact, sclera anicteric, conjunctiva clear. No lid lag. EARS, NOSE, THROAT: Ears normal, nares patent, oropharynx clear without exudates. Moist mucous membranes. NECK: Normal range of motion, supple without lymphadenopathy, JVD, or masses. LUNGS: Breath sounds equal, clear to auscultation bilaterally. No wheezes, and no crackles. No accessory muscle use. HEART: Regular rate and rhythm, normal S1 and S2 without murmur, rub or gallop. ABDOMEN: Soft, nontender, not distended, normoactive bowel sounds, no guarding, no rebound, no masses. No hepatomegaly or splenomegaly. MUSCULOSKELETAL: Normal range of motion at all joints. No bony deformities or tenderness. No CVA tenderness. UPPER EXTREMITIES: 2+ pulses, warm, well-perfused. No cyanosis. No clubbing. No peripheral edema. LOWER EXTREMITIES: 2+ pulses, warm, well-perfused. No calf tenderness. No peripheral edema. NEUROLOGICAL: Cranial nerves II-XII intact. Normal speech. Normal gait. PSYCHIATRIC: Cooperative. Good eye contact. Appropriate mood and affect. SKIN: Warm, dry, normal turgor, no rashes or lesions noted, normal capillary refill. Laboratory Results - last 24 hr 02/03/20 02/03/20 02/03/20 19:45 19:45 19:45 WBC 6.8 RBC 4.63 Hgb 15.9 Hct 44.6 MCV 96.2 H MCH 34.2 H MCHC 35.6 RDW 11.8 L Plt Count 185 MPV 9.1 Absolute Neuts (auto) 4.2 Neutrophils % 63.0 Lymphocytes % 24.6 Monocytes % 9.7 Eosinophils % 1.8 Basophils % 0.9 Sodium 141 Potassium 4.3 Chloride 103 Carbon Dioxide 27 Anion Gap 11 BUN 17.0 Creatinine 1.0 Est GFR (CKD-EPI)AfAm 87.99 Est GFR (CKD-EPI)NonAf 75.92 Random Glucose 103 Calcium 9.7 Total Bilirubin 1.2 H AST 17 ALT 22 Alkaline Phosphatase 55 Creatine Kinase 75 Troponin I < 0.03 Total Protein 7.4 Albumin 4.5 Urine Color Urine Appearance Urine pH Urine Protein Urine Glucose (UA) Urine Ketones Urine Blood Urine Nitrite Urine Bilirubin Urine Urobilinogen Ur Leukocyte Esterase 02/03/20 20:20 WBC RBC Hgb Hct MCV MCH MCHC RDW Plt Count MPV Absolute Neuts (auto) Neutrophils % Lymphocytes % Monocytes % Eosinophils % Basophils % Sodium Potassium Chloride Carbon Dioxide Anion Gap BUN Creatinine Est GFR (CKD-EPI)AfAm Est GFR (CKD-EPI)NonAf Random Glucose Calcium Total Bilirubin AST ALT Alkaline Phosphatase Creatine Kinase Troponin I Total Protein Albumin Urine Color Yellow Urine Appearance Clear Urine pH 6.0 Urine Protein Negative Urine Glucose (UA) Negative Urine Ketones Negative Urine Blood Negative Urine Nitrite Negative Urine Bilirubin Negative Urine Urobilinogen 0.2 Ur Leukocyte Esterase Negative ASSESSMENT/PLAN: Akhil Kan is a 69 yr old M, medical condition with a significant past medical history of hypertension, hyperlipidemia, CVA/TIA, Hepatitis C, and diverticulitis s/p sigmoid resection (2017), GERD admitted under observation for Admitting Diagnosis Chest pain Chronic Conditions HTN HLD hx CVA/TIA Hep C #Chest pain r/o ACS -tele obs -cardio consult -serial trops -Echo -lipid in AM -on asa 325 -EKG: sinus philip w/PVC #HTN -c/w home meds #GERD -c/w PPI #CVA/TIA -c/w asa Full Code Dispo; requires inpateint treatment Visit type - Emergency Visit Emergency Visit: Yes ED Registration Date: 02/03/20 Care time: The patient presented to the Emergency Department on the above date and was hospitalized for further evaluation of their emergent condition. - New Patient This patient is new to me today: Yes Date on this admission: 02/03/20 - Critical Care Critical Care patient: No
[2020-02-03 22:54] VITALS: BMI 29.6
[2020-02-03] MEDS: HEPARIN NA (PORCINE) 5,000 UNITS/ML 1ML VIAL SQ SCH (23:02)
[2020-02-03] MEDS ORDERED: ACETAMINOPHEN 325 MG TABLET (FP) PO PRN (23:12)
--- NOTE | 2020-02-04 06:29 | CON.CARD ---
Consult Consult Specialty:: Cardiology Referred by:: Dr. Barone Reason for Consultation:: chest pain - History of Present Illness Chief Complaint: chest pain History of Present Illness: 69 M with chronic HTN presents to ER with 1 day of essentially continuous sharp "stabbing" CP in epigastric and central chest. No SOB, nausea, vomiting or diaphoresis. No jaw pain. Not related to exertion No fever, chills, cough. No edema, pnd, palps. Feels different than usual GERD. Enzymes neg x 2. 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: Alzheimer's, CVA, Dementia, Migraine, Multiple Sclerosis, Peripheral Neuropathy, Parkinson's, Seizure, Syncope, TIA, Vertigo, Other Cardio/Vascular: Yes: HTN Gastrointestinal: Yes: GERD Hepatobiliary: No: Cirrhosis, Cholelithiasis, Cholecystitis, Choledocholithiasis, Hepatitis A, Hepatitis B, Hepatitis C, Other Renal/: No: Renal Failure, Renal Inusuff, BPH, Cancer, Hematuria, Hemodialysis, Neurogenic Bladder, Renal Calculi, UTI, Other Heme/Onc: No: Anemia, B12 Deficiency, Bleeding Disorder, Cancer, Current Chemotherapy, Current Radiation Therapy, Hemochromatosis, Hypercoaguable State, Myeloproliferative Synd, Sickle Cell Disease, Sickle Cell Trait, Thrombocytopenia, Other Infectious Disease: No: AIDS, C-Diff, Herpes Zoster, HIV, MRSA, STD's, Tuberculosis, VREF, Other Psych: No: Addictions, Anxiety, Bipolar, Depression, Panic, Psychosis, Schizophrenia, Other Rheumatology: No: Fibromyalgia, Gout, Lupus, Rheumatoid Arthritis, Sarcoidosis, Vasculitis, Other ENT: No: Allergic Rhinitis, Sinusitis, Other Endocrine: No: Lobo's Disease, [place]'s Disease, Diabetes Insipidus, Diabetes Mellitus, Hyperparathyroidism, Hyperthyroidism, Hypothyroidism, Osteopenia, SIADH, Other Dermatology: No: Basal Cell, Cellulitis, Eczema, Melanoma, Psoriasis, Squamous Cell, Other - Past Surgical History Past Surgical History: No: None, AAA Repair, AICD, Amputation, Appendectomy, Arthrosocopy, AV Fistula/Graft, Bariatric Surgery, Breast Biopsy, Bypass, CABG, Carotid Endarterectomy, Cataract Removal, Cholecystectomy, Colectomy, Colonoscopy, Colostomy, Craniotomy, , Cystectomy, Hernia Repair, Hysterectomy, Ileal Conduit, Ileosotomy, Joint Replacement, Kidney Transplant, Laminectomy, Liver Transplant, Mastectomy, Nephrectomy, Oopherectomy, O rchiectomy, Permanent Pacemaker, Prostatectomy, Splenectomy, Stent, Thoracotomy, TURP, Tonsillectomy, Tubal Ligation, Upper Endoscopy, Valve Replacement, Vasectomy, Vein Stripping/Ligation - Alcohol/Substance Use Hx Alcohol Use: No - Smoking History Smoking history: Never smoked Have you smoked in the past 12 months: No Aproximately how many cigarettes per day: 0 - Social History Usual Living Arrangement: With Spouse ADL: Family Assistance History of Recent Travel: No Home Medications - Allergies Allergies/Adverse Reactions: Allergies Allergy/AdvReac Type Severity Reaction Status Date / Time No Known Allergies Allergy Verified 02/03/20 19:09 - Home Medications Home Medications: Ambulatory Orders Amlodipine Besylate 10 mg PO DAILY 02/03/20 Aspirin [Aspirin EC] 650 mg PO ONCE 02/03/20 Hydrochlorothiazide 25 mg PO DAILY 02/03/20 Irbesartan [Avapro] 300 mg PO DAILY 02/03/20 Potassium Chloride [K-Dur -] 10 meq PO DAILY 02/03/20 Family Medical History Family History: Unremarkable (father CA at 50, but was smoker and DM) Review of Systems - Review of Systems Constitutional: reports: No Symptoms Eyes: reports: No Symptoms HENT: reports: No Symptoms Neck: reports: No Symptoms Cardiovascular: reports: Chest Pain Respiratory: reports: No Symptoms Gastrointestinal: reports: No Symptoms Genitourinary: reports: No Symptoms Breasts: reports: No Symptoms Reported Musculoskeletal: reports: No Symptoms Integumentary: reports: No Symptoms Neurological: reports: No Symptoms Endocrine: reports: No Symptoms Hematology/Lymphatic: reports: No Symptoms Psychiatric: reports: No Symptoms - Risk Factors Known Risk Factors: Yes: Age, Hypertension Vital Signs: Vital Signs Temperature 98.0 F 02/04/20 05:39 Pulse Rate 50 L 02/04/20 05:39 Respiratory Rate 17 02/04/20 05:39 Blood Pressure 116/68 02/04/20 05:39 O2 Sat by Pulse Oximetry (%) 100 02/04/20 05:39 Constitutional: Yes: No Distress, Calm Eyes: Yes: Conjunctiva Clear, EOM Intact HENT: Yes: Atraumatic, Normocephalic, Tonsillar Exudate Respiratory: Yes: CTA Bilaterally Gastrointestinal: Yes: Soft (NT) Cardiovascular: Yes: Regular Rate and Rhythm JVD: No Carotid Bruit: No PMI: Non-Displaced Heart Sounds: Yes: S1, S2 (RRR, no murmurs rubs/gall) Edema: No Peripheral Pulses WNL: Yes Neurological: Yes: Alert, Oriented ...Motor Strength: WNL Psychiatric: Yes: WNL - Other Data Labs, Other Data: CBC, BMP 02/03/20 19:45 02/03/20 19:45 Troponin, BNP 02/03/20 02/04/20 19:45 02:00 Troponin I < 0.03 < 0.02 Troponin, BNP 02/03/20 02/04/20 19:45 02:00 Troponin I < 0.03 < 0.02 as above Echo: Pending Imaging - Results Chest X-ray: Image Reviewed EKG: Image Reviewed Assessment/Plan IMP: HTN, chronic Epigastric/ chest pain, atypical features with C.E - x2 REC: 1. 3rd cardiac enzyme now 2. Echo 3. Stress MPI once 3rd enzyme resulted. Patient is COVID pending, hospital policy is that patients have documented negative COVID test prior to diagnostic testing. 4. ASA, statin. 5. Can try PPI to see if provides relief in the event this may be atypical GERD.
--- NOTE | 2020-02-04 08:24 | PN ---
Progress Note, Physician - Current Medication List Current Medications: Active Medications Acetaminophen (Tylenol -) 650 mg PO Q6H PRN PRN Reason: PAIN LEVEL 6-10 Last Admin: 02/03/20 23:37 Dose: 650 mg Documented by: Amlodipine Besylate (Norvasc -) 10 mg PO DAILY [facility] Aspirin (Asa -) 325 mg PO DAILY [facility] Heparin Sodium (Porcine) (Heparin -) 5,000 unit SQ BID JOSHUA Last Admin: 02/03/20 23:02 Dose: 5,000 unit Documented by: Hydrochlorothiazide (Hctz -) 25 mg PO DAILY [facility] Losartan Potassium (Cozaar -) 100 mg PO DAILY [facility] Pantoprazole Sodium (Protonix -) 40 mg PO DAILY [facility] Potassium Chloride (K-Dur -) 10 meq PO DAILY [facility] - Objective Vital Signs: Vital Signs Temperature 98.0 F 02/04/20 05:39 Pulse Rate 50 L 02/04/20 05:39 Respiratory Rate 17 02/04/20 05:39 Blood Pressure 116/68 02/04/20 05:39 O2 Sat by Pulse Oximetry (%) 100 02/04/20 08:03 Cardiovascular: Yes: Pulse Irregular, S1, S2 Respiratory: Yes: Regular, CTA Bilaterally Gastrointestinal: Yes: Normal Bowel Sounds, Soft Labs: CBC, BMP 02/03/20 19:45 02/03/20 19:45 Problem List - Problems (1) Chest pain Assessment/Plan: cardio consult noted ce neg x2 echo and stress test Code(s): R07.9 - CHEST PAIN, UNSPECIFIED (2) HTN (hypertension) Assessment/Plan: same meds monitor Vital Signs Period Temp Pulse Resp BP Sys/Rees Pulse Ox Last 24 Hr 97.9 F-98.4 F 50-95 15-18 116-154/68-73 97-100 Code(s): I10 - ESSENTIAL (PRIMARY) HYPERTENSION (3) HLD (hyperlipidemia) Assessment/Plan: statin check lipids Code(s): E78.5 - HYPERLIPIDEMIA, UNSPECIFIED
[2020-02-04 09:53] LABS: ALBUMIN 4.3 g/dl (3.4-5.0); BILIRUBIN,TOTAL 1.3 mg/dl (0.2-1); CALCIUM 9.2 mg/dl (8.5-10); CREATININE 1.1 mg/dl (0.55-1.3); POTASSIUM 4.5 mmol/L (3.5-5.1); TOT PROT 7.3 g/dl (6.4-8.2)
[2020-02-04] MEDS: ASPIRIN 325 MG TABLET PO SCH (09:54)
[2020-02-04] MEDS: POTASSIUM CHLORIDE TABS 10 MEQ TABLET.ER (FP) PO SCH (09:54)
[2020-02-04] MEDS: PANTOPRAZOLE 40 MG TABLET PO SCH (09:55)
[2020-02-04] MEDS: LOSARTAN POTASSIUM 50 MG TABLET (FP) PO SCH (09:55)
[2020-02-04] MEDS: HYDROCHLOROTHIAZIDE 25 MG TABLET (FP) PO SCH (09:55)
[2020-02-04] MEDS: amLODIPine BESYLATE 10 MG TABLET (FP) PO SCH (09:56)
[2020-02-04] MEDS: HEPARIN NA (PORCINE) 5,000 UNITS/ML 1ML VIAL SQ SCH ×2 (09:56→21:09)
[2020-02-04] MEDS ORDERED: ASPIRIN COATED 81 MG TABLET.EC PO SCH (10:00)
[2020-02-04] MEDS ORDERED: PATIENT'S OWN MEDICATION (NON-FORMULARY) (Irbesartan [Avapro] 300 MG) PO SCH (10:00)
[2020-02-04 12:09] LABS: HEMATOCRIT 47.1 % (35.4-49); HEMOGLOBIN 16.3 GM/dL (11.7-16.9); MCH 34.4 pg (25.7-33.7); MCHC 34.6 g/dl (32.0-35.9); MEAN CELL VOLUME 99.4 fl (80-96); MEAN PLT VOLUME 9.8 fl (7.5-11.1); PLATELET COUNT 172 K/MM3 (134-434); RBC 4.74 M/mm3 (4.00-5.60); WHITE BLOOD COUNT 5.3 K/mm3 (4.0-10.0)
--- NOTE | 2020-02-04 14:23 | EKG ---
Test Reason : Blood Pressure : / mmHG Vent. Rate : 054 BPM Atrial Rate : 054 BPM P-R Int : 148 ms QRS Dur : 084 ms QT Int : 458 ms P-R-T Axes : 034 010 011 degrees QTc Int : 434 ms SINUS BRADYCARDIA WITH PREMATURE SUPRAVENTRICULAR COMPLEXES OTHERWISE NORMAL ECG WHEN COMPARED WITH ECG OF 23-SEP-2017 10:16, PREMATURE SUPRAVENTRICULAR COMPLEXES ARE NOW PRESENT Confirmed by GREGORIA NAZARIO MD ([id number]) on 02/04/2020 2:23:11 PM Referred By: NIKI BOWIE Confirmed By:GREGORIA NAZARIO MD
--- NOTE | 2020-02-04 14:42 | ECHO ---
Version: 1 Name: GREGORIA FREEMAN Exam: Adult Echocardiogram Study Date: 02/04/2020, 1:57 PM Age: 69 Years MMode/2D Measurements & Calculations IVSd: 1.28 cm LVIDs: 3.1 cm LVIDd: 4.4 cm LVPWd: 0.87 cm LVOT diam: 2.00 cm Ao root diam: 3.1 cm LA dimension: 3.6 cm Doppler Measurements & Calculations MV E max lauren: 50.0 cm/sec MV A max lauren: 58.8 cm/sec MV E/A: 0.85 MR max P.2 mmHg Ao max P.6 mmHg Ao V2 max: 128.2 cm/sec PI end-d lauren: 84.3 cm/sec TR max lauren: 263.1 cm/sec TR max P.8 mmHg Left Ventricle There is borderline concentric left ventricular hypertrophy. Left ventricular systolic function is n ormal. Ejection Fraction = 60-65%. The transmitral spectral Doppler flow pattern is normal for age. The lef t ventricular wall motion is normal. Right Ventricle The right ventricle is normal in size and function. Atria Normal left and right atrial size and function. Mitral Valve The mitral valve is normal in structure and function. There is no mitral valve stenosis. There is mi ld mitral regurgitation. Tricuspid Valve The tricuspid valve is normal in structure and function. There is mild tricuspid regurgitation. Righ t ventricular systolic pressure is normal. Aortic Valve The aortic valve is trileaflet. No hemodynamically significant valvular aortic stenosis. No aortic regurgitation is present. Pulmonic Valve The pulmonic valve is not well seen, but is grossly normal. There is no pulmonic valvular stenosis. There is no pulmonic valvular regurgitation. Great Vessels The aortic root is normal size. Pericardium/Pleura There is no pericardial effusion. Summary Statements There is borderline concentric left ventricular hypertrophy. Left ventricular systolic function is normal. Ejection Fraction = 60-65%. The right ventricle is normal in size and function. There is mild mitral regurgitation. There is mild tricuspid regurgitation. Right ventricular systolic pressure is normal. There is no pericardial effusion. MD Landaverde *Dayna 02/04/2020, 2:41 PM Ordering Physician: Aissatou Lester Performed By: Milena Harry
[2020-02-04] MEDS: ATORVASTATIN CA 20 MG TABLET (FP) PO SCH (21:09)
[2020-02-05] MEDS: LOSARTAN POTASSIUM 50 MG TABLET (FP) PO SCH (09:34)
[2020-02-05] MEDS: POTASSIUM CHLORIDE TABS 10 MEQ TABLET.ER (FP) PO SCH (09:34)
[2020-02-05] MEDS: PANTOPRAZOLE 40 MG TABLET PO SCH (09:34)
[2020-02-05] MEDS: amLODIPine BESYLATE 10 MG TABLET (FP) PO SCH (09:34)
[2020-02-05] MEDS: HYDROCHLOROTHIAZIDE 25 MG TABLET (FP) PO SCH (09:34)
[2020-02-05] MEDS: HEPARIN NA (PORCINE) 5,000 UNITS/ML 1ML VIAL SQ SCH ×2 (09:34→21:29)
[2020-02-05] MEDS: ASPIRIN 325 MG TABLET PO SCH (09:34)
--- NOTE | 2020-02-05 10:08 | PN ---
Progress Note, Physician - Current Medication List Current Medications: Active Medications Acetaminophen (Tylenol -) 650 mg PO Q6H PRN PRN Reason: PAIN LEVEL 6-10 Last Admin: 02/03/20 23:37 Dose: 650 mg Documented by: Amlodipine Besylate (Norvasc -) 10 mg PO DAILY [facility] Last Admin: 02/05/20 09:34 Dose: 10 mg Documented by: Aspirin (Asa -) 325 mg PO DAILY [facility] Last Admin: 02/05/20 09:34 Dose: 325 mg Documented by: Atorvastatin Calcium (Lipitor -) 20 mg PO HS [facility] Last Admin: 02/04/20 21:09 Dose: 20 mg Documented by: Heparin Sodium (Porcine) (Heparin -) 5,000 unit SQ BID [facility] Last Admin: 02/05/20 09:34 Dose: 5,000 unit Documented by: Hydrochlorothiazide (Hctz -) 25 mg PO DAILY [facility] Last Admin: 02/05/20 09:34 Dose: 25 mg Documented by: Losartan Potassium (Cozaar -) 100 mg PO DAILY [facility] Last Admin: 02/05/20 09:34 Dose: 100 mg Documented by: Pantoprazole Sodium (Protonix -) 40 mg PO DAILY [facility] Last Admin: 02/05/20 09:34 Dose: 40 mg Documented by: Potassium Chloride (K-Dur -) 10 meq PO DAILY [facility] Last Admin: 02/05/20 09:34 Dose: 10 meq Documented by: - Objective Vital Signs: Vital Signs Temperature 98.0 F 02/05/20 06:00 Pulse Rate 50 L 02/05/20 06:00 Respiratory Rate 18 02/05/20 06:00 Blood Pressure 137/74 02/05/20 06:00 O2 Sat by Pulse Oximetry (%) 98 02/05/20 06:00 Cardiovascular: Yes: Regular Rate and Rhythm Respiratory: Yes: Regular, CTA Bilaterally Gastrointestinal: Yes: Normal Bowel Sounds, Soft Labs: CBC, BMP 02/04/20 08:35 02/04/20 08:35 Problem List - Problems (1) Chest pain Assessment/Plan: cardio consult noted ce neg x3 echo noted normal lv function lvh stress test pending Code(s): R07.9 - CHEST PAIN, UNSPECIFIED (2) HTN (hypertension) Assessment/Plan: same meds monitor Vital Signs Period Temp Pulse Resp BP Sys/Rees Pulse Ox Last 24 Hr 97.9 F-98.4 F 50-95 15-18 116-154/68-73 97-100 Code(s): I10 - ESSENTIAL (PRIMARY) HYPERTENSION (3) HLD (hyperlipidemia) Assessment/Plan: statin check lipids Code(s): E78.5 - HYPERLIPIDEMIA, UNSPECIFIED
[2020-02-05 11:19] LABS: ALBUMIN 4.6 g/dl (3.4-5.0); BILIRUBIN,TOTAL 1.2 mg/dl (0.2-1); CALCIUM 9.4 mg/dl (8.5-10); POTASSIUM 4.6 mmol/L (3.5-5.1); TOT PROT 7.9 g/dl (6.4-8.2)
--- NOTE | 2020-02-05 12:15 | EKG ---
Test Reason : Blood Pressure : / mmHG Vent. Rate : 061 BPM Atrial Rate : 061 BPM P-R Int : 116 ms QRS Dur : 088 ms QT Int : 464 ms P-R-T Axes : 053 013 022 degrees QTc Int : 467 ms SINUS RHYTHM WITH PREMATURE ATRIAL COMPLEXES WITH ABERRANT CONDUCTION NONSPECIFIC ST ABNORMALITY ABNORMAL ECG WHEN COMPARED WITH ECG OF 03-FEB-2020 19:36, NO SIGNIFICANT CHANGE WAS FOUND Confirmed by Edilberto Freedman ([id number]) on 02/05/2020 12:15:45 PM Referred By: LEOLA Confirmed By:Edilberto Freedman
--- NOTE | 2020-02-05 13:08 | PN ---
Progress Note (short form) - Note Progress Note: cc: chest pain HPI: complains he was up all night with intermittent sharp, stabbing chest pain. mostly occured when lying down. no dyspnea, palps, dizziness. Current Medications Generic Name Dose Route Start Last Admin Trade Name Freq PRN Reason Stop Dose Admin Acetaminophen 650 mg 02/03/20 23:12 02/03/20 23:37 Tylenol - PO 650 mg Q6H PRN Administration PAIN LEVEL 6-10 Amlodipine Besylate 10 mg 02/04/20 10:00 02/05/20 09:34 Norvasc - PO 10 mg DAILY [facility] Administration Aspirin 325 mg 02/04/20 10:00 02/05/20 09:34 Asa - PO 325 mg DAILY [facility] Administration Atorvastatin Calcium 20 mg 02/04/20 22:00 02/04/20 21:09 Lipitor - PO 20 mg HS [facility] Administration Heparin Sodium (Porcine) 5,000 unit 02/03/20 22:00 02/05/20 09:34 Heparin - SQ 5,000 unit BID [facility] Administration Hydrochlorothiazide 25 mg 02/04/20 10:00 02/05/20 09:34 Hctz - PO 25 mg DAILY [facility] Administration Losartan Potassium 100 mg 02/04/20 10:00 02/05/20 09:34 Cozaar - PO 100 mg DAILY [facility] Administration Pantoprazole Sodium 40 mg 02/04/20 10:00 02/05/20 09:34 Protonix - PO 40 mg DAILY [facility] Administration Potassium Chloride 10 meq 02/04/20 10:00 02/05/20 09:34 K-Dur - PO 10 meq DAILY J[facility] Administration Vital Signs Period Temp Pulse Resp BP Sys/Rees Pulse Ox Last 24 Hr 97.9 F-98.5 F 50-73 16-18 125-137/62-74 97-99 Constitutional: Yes: No Distress, Calm Eyes: Yes: Conjunctiva Clear, EOM Intact HENT: Yes: Atraumatic, Normocephalic Respiratory: Yes: CTA Bilaterally Gastrointestinal: Yes: Soft (NT) Cardiovascular: Yes: Regular Rate and Rhythm JVD: No Carotid Bruit: No PMI: Non-Displaced Heart Sounds: Yes: S1, S2 (RRR, no murmurs rubs/gall) Edema: No Neurological: Yes: Alert, Oriented not agitated no jaundice, diaphoresis echo 01/2020 nl LV function, mild MR, mild TR tele: sinus Assessment/Plan IMP: HTN, chronic Epigastric/ chest pain, atypical features with C.E - x2 REC: 1. trop neg x 3, less likely ACS 2. echo unremarkable 3. Stress MPI ordered, COVID testing pending 4. ASA, statin. 5. cont PPI
[2020-02-05] MEDS: ATORVASTATIN CA 20 MG TABLET (FP) PO SCH (21:29)
[2020-02-06] MEDS: HYDROCHLOROTHIAZIDE 25 MG TABLET (FP) PO SCH (09:38)
[2020-02-06] MEDS: ASPIRIN 325 MG TABLET PO SCH (09:38)
[2020-02-06] MEDS: LOSARTAN POTASSIUM 50 MG TABLET (FP) PO SCH (09:38)
[2020-02-06] MEDS: HEPARIN NA (PORCINE) 5,000 UNITS/ML 1ML VIAL SQ SCH ×2 (09:38→21:19)
[2020-02-06] MEDS: PANTOPRAZOLE 40 MG TABLET PO SCH (09:39)
[2020-02-06] MEDS: POTASSIUM CHLORIDE TABS 10 MEQ TABLET.ER (FP) PO SCH (09:39)
[2020-02-06] MEDS: amLODIPine BESYLATE 10 MG TABLET (FP) PO SCH (09:39)
--- NOTE | 2020-02-06 10:08 | PN ---
Progress Note, Physician - Current Medication List Current Medications: Active Medications Acetaminophen (Tylenol -) 650 mg PO Q6H PRN PRN Reason: PAIN LEVEL 6-10 Last Admin: 02/03/20 23:37 Dose: 650 mg Documented by: Amlodipine Besylate (Norvasc -) 10 mg PO DAILY [facility] Last Admin: 02/06/20 09:39 Dose: 10 mg Documented by: Aspirin (Asa -) 325 mg PO DAILY [facility] Last Admin: 02/06/20 09:38 Dose: 325 mg Documented by: Atorvastatin Calcium (Lipitor -) 20 mg PO HS [facility] Last Admin: 02/05/20 21:29 Dose: 20 mg Documented by: Heparin Sodium (Porcine) (Heparin -) 5,000 unit SQ BID [facility] Last Admin: 02/06/20 09:38 Dose: 5,000 unit Documented by: Hydrochlorothiazide (Hctz -) 25 mg PO DAILY [facility] Last Admin: 02/06/20 09:38 Dose: 25 mg Documented by: Losartan Potassium (Cozaar -) 100 mg PO DAILY [facility] Last Admin: 02/06/20 09:38 Dose: 100 mg Documented by: Pantoprazole Sodium (Protonix -) 40 mg PO DAILY [facility] Last Admin: 02/06/20 09:39 Dose: 40 mg Documented by: Potassium Chloride (K-Dur -) 10 meq PO DAILY [facility] Last Admin: 02/06/20 09:39 Dose: 10 meq Documented by: - Objective Vital Signs: Vital Signs Temperature 97.8 F 02/06/20 07:58 Pulse Rate 79 02/06/20 07:58 Respiratory Rate 18 02/06/20 07:58 Blood Pressure 112/67 02/06/20 07:58 O2 Sat by Pulse Oximetry (%) 96 02/06/20 06:00 Cardiovascular: Yes: Regular Rate and Rhythm Respiratory: Yes: Regular, CTA Bilaterally Gastrointestinal: Yes: Normal Bowel Sounds, Soft Labs: CBC, BMP 02/04/20 08:35 02/05/20 10:45 Problem List - Problems (1) Chest pain Assessment/Plan: cardio consult noted ce neg x3 echo noted normal lv function lvh stress test pending Code(s): R07.9 - CHEST PAIN, UNSPECIFIED (2) HTN (hypertension) Assessment/Plan: same meds monitor Vital Signs Period Temp Pulse Resp BP Sys/Rees Pulse Ox Last 24 Hr 97.9 F-98.4 F 50-95 15-18 116-154/68-73 97-100 Code(s): I10 - ESSENTIAL (PRIMARY) HYPERTENSION (3) HLD (hyperlipidemia) Assessment/Plan: statin check lipids Code(s): E78.5 - HYPERLIPIDEMIA, UNSPECIFIED
--- NOTE | 2020-02-06 12:25 | PN ---
Progress Note (short form) - Note Progress Note: cc: chest pain HPI: feels well. no cp, dyspnea, palps, dizziness. Current Medications Generic Name Dose Route Start Last Admin Trade Name José Miguel PRN Reason Stop Dose Admin Acetaminophen 650 mg 02/03/20 23:12 02/03/20 23:37 Tylenol - PO 650 mg Q6H PRN Administration PAIN LEVEL 6-10 Amlodipine Besylate 10 mg 02/04/20 10:00 02/06/20 09:39 Norvasc - PO 10 mg DAILY [facility] Administration Aspirin 325 mg 02/04/20 10:00 02/06/20 09:38 Asa - PO 325 mg DAILY [facility] Administration Atorvastatin Calcium 20 mg 02/04/20 22:00 02/05/20 21:29 Lipitor - PO 20 mg HS [facility] Administration Heparin Sodium (Porcine) 5,000 unit 02/03/20 22:00 02/06/20 09:38 Heparin - SQ 5,000 unit BID [facility] Administration Hydrochlorothiazide 25 mg 02/04/20 10:00 02/06/20 09:38 Hctz - PO 25 mg DAILY [facility] Administration Losartan Potassium 100 mg 02/04/20 10:00 02/06/20 09:38 Cozaar - PO 100 mg DAILY [facility] Administration Pantoprazole Sodium 40 mg 02/04/20 10:00 02/06/20 09:39 Protonix - PO 40 mg DAILY [facility] Administration Potassium Chloride 10 meq 02/04/20 10:00 02/06/20 09:39 K-Dur - PO 10 meq DAILY [facility] Administration Vital Signs Period Temp Pulse Resp BP Sys/Rees Pulse Ox Last 24 Hr 97.8 F-98.5 F 44-91 18-18 107-120/55-73 96-99 Constitutional: Yes: No Distress, Calm Eyes: Yes: Conjunctiva Clear, EOM Intact HENT: Yes: Atraumatic, Normocephalic Respiratory: Yes: CTA Bilaterally Gastrointestinal: Yes: Soft (NT) Cardiovascular: Yes: Regular Rate and Rhythm JVD: No Carotid Bruit: No PMI: Non-Displaced Heart Sounds: Yes: S1, S2 (RRR, no murmurs rubs/gall) Edema: No Neurological: Yes: Alert, Oriented not agitated no jaundice, diaphoresis Laboratory Last Values WBC 5.3 K/mm3 (4.0-10.0) 02/04/20 08:35 RBC 4.74 M/mm3 (4.00-5.60) 02/04/20 08:35 Hgb 16.3 GM/dL (11.7-16.9) 02/04/20 08:35 Hct 47.1 % (35.4-49) 02/04/20 08:35 MCV 99.4 fl (80-96) H 02/04/20 08:35 MCH 34.4 pg (25.7-33.7) H 02/04/20 08:35 MCHC 34.6 g/dl (32.0-35.9) 02/04/20 08:35 RDW 13.0 % (11.9-15.9) 02/04/20 08:35 Plt Count 172 K/MM3 (134-434) D 02/04/20 08:35 MPV 9.8 fl (7.5-11.1) 02/04/20 08:35 Absolute Neuts (auto) 4.2 K/mm3 02/03/20 19:45 Neutrophils % 63.0 % (42.8-82.8) 02/03/20 19:45 Lymphocytes % 24.6 % (8-40) 02/03/20 19:45 Monocytes % 9.7 % (3.8-10.2) 02/03/20 19:45 Eosinophils % 1.8 % (0-4.5) 02/03/20 19:45 Basophils % 0.9 % (0-2.0) 02/03/20 19:45 Sodium 138 mmol/L (136-145) 02/05/20 10:45 Potassium 4.6 mmol/L (3.5-5.1) 02/05/20 10:45 Chloride 102 mmol/L (98-107) 02/05/20 10:45 Carbon Dioxide 27 mmol/L (21-32) 02/05/20 10:45 Anion Gap 9 MMOL/L (8-16) 02/05/20 10:45 BUN 19.0 mg/dl (7-18) H 02/05/20 10:45 Creatinine 1.0 mg/dl (0.55-1.3) 02/05/20 10:45 Est GFR (CKD-EPI)AfAm 87.99 02/05/20 10:45 Est GFR (CKD-EPI)NonAf 75.92 02/05/20 10:45 Random Glucose 107 mg/dl (74-106) H 02/05/20 10:45 Hemoglobin A1c % 5.0 % (4.2-6.3) 02/04/20 08:35 Calcium 9.4 mg/dl (8.5-10) 02/05/20 10:45 Magnesium 2.0 mg/dL (1.8-2.4) 02/04/20 08:35 Total Bilirubin 1.2 mg/dl (0.2-1) H 02/05/20 10:45 AST 19 U/L (15-37) 02/05/20 10:45 ALT 21 U/L (13-61) 02/05/20 10:45 Alkaline Phosphatase 52 U/L (45-117) 02/05/20 10:45 Creatine Kinase 77 U/L (26-308) 02/05/20 10:45 Troponin I < 0.03 ng/ml (0.00-0.05) 02/05/20 10:45 Total Protein 7.9 g/dl (6.4-8.2) 02/05/20 10:45 Albumin 4.6 g/dl (3.4-5.0) 02/05/20 10:45 Triglycerides 143 mg/dl (0-150) 02/04/20 08:35 Cholesterol 202 mg/dl (50-200) H 02/04/20 08:35 Total LDL Cholesterol 137 mg/dL (5-100) H 02/04/20 08:35 HDL Cholesterol 36 mg/dl (40-60) L 02/04/20 08:35 Urine Color Yellow 02/03/20 20:20 Urine Appearance Clear 02/03/20 20:20 Urine pH 6.0 (4.5-8) 02/03/20 20:20 Urine Protein Negative (NEGATIVE) 02/03/20 20:20 Urine Glucose (UA) Negative (NEGATIVE) 02/03/20 20:20 Urine Ketones Negative (NEGATIVE) 02/03/20 20:20 Urine Blood Negative (NEGATIVE) 02/03/20 20:20 Urine Nitrite Negative (NEGATIVE) 02/03/20 20:20 Urine Bilirubin Negative (NEGATIVE) 02/03/20 20:20 Urine Urobilinogen 0.2 (0.2-1.0) 02/03/20 20:20 Ur Leukocyte Esterase Negative (NEGATIVE) 02/03/20 20:20 COVID-19 (FELISHA) Not detected (Not Detected) 02/03/20 19:45 echo 01/2020 nl LV function, mild MR, mild TR tele: sinus Assessment/Plan IMP: HTN, chronic Epigastric/ chest pain, atypical features with C.E - REC: 1. trop neg x 3, less likely ACS 2. echo unremarkable 3. Stress MPI for tomorrow, if benign then ok for dc from cardiac pov 4. cont ASA, statin. 5. cont PPI
[2020-02-06] MEDS: ATORVASTATIN CA 20 MG TABLET (FP) PO SCH (21:20)
[2020-02-07 08:03] VITALS: TEMP 98.1
[2020-02-07] MEDS ORDERED: REGADENOSON 0.4 MG/5 ML PRE-FILLED SYRINGE IVPUSH ONE ×2 (10:17→10:30)
[2020-02-07] MEDS: LOSARTAN POTASSIUM 50 MG TABLET (FP) PO SCH (12:24)
[2020-02-07] MEDS: HEPARIN NA (PORCINE) 5,000 UNITS/ML 1ML VIAL SQ SCH (12:24)
[2020-02-07] MEDS: HYDROCHLOROTHIAZIDE 25 MG TABLET (FP) PO SCH (12:25)
[2020-02-07] MEDS: ASPIRIN 325 MG TABLET PO SCH (12:25)
[2020-02-07] MEDS: PANTOPRAZOLE 40 MG TABLET PO SCH (12:25)
[2020-02-07] MEDS: amLODIPine BESYLATE 10 MG TABLET (FP) PO SCH (12:25)
[2020-02-07] MEDS: POTASSIUM CHLORIDE TABS 10 MEQ TABLET.ER (FP) PO SCH (12:25)
[2020-02-07 13:48] VITALS: BP 157/80; PULSE 48
--- NOTE | 2020-02-07 13:55 | EKG ---
Test Reason : Blood Pressure : / mmHG Vent. Rate : 055 BPM Atrial Rate : 055 BPM P-R Int : 128 ms QRS Dur : 084 ms QT Int : 480 ms P-R-T Axes : 043 012 008 degrees QTc Int : 459 ms SINUS BRADYCARDIA WITH PREMATURE ATRIAL COMPLEXES NONSPECIFIC ST ABNORMALITY ABNORMAL ECG WHEN COMPARED WITH ECG OF 04-FEB-2020 12:10, NO SIGNIFICANT CHANGE WAS FOUND Confirmed by Edilberto Freedman ([id number]) on 02/07/2020 1:54:57 PM Referred By: DR RIBEIRO Confirmed By:Edilberto Freedman
--- NOTE | 2020-02-07 14:26 | DS ---
Physical Examination Vital Signs: Vital Signs Temperature 98.1 F 02/07/20 13:45 Pulse Rate 48 L 02/07/20 13:45 Respiratory Rate 18 02/07/20 13:45 Blood Pressure 157/80 02/07/20 13:45 O2 Sat by Pulse Oximetry (%) 98 02/07/20 13:45 Labs: CBC, BMP 02/04/20 08:35 02/05/20 10:45 Discharge Summary Problems reviewed: Yes Reason For Visit: CHEST PAIN AT REST Current Active Problems Chest pain (Acute) Chest pain at rest (Acute) HLD (hyperlipidemia) (Acute) HTN (hypertension) (Acute) Condition: Good - Instructions Referrals: Addie Barone MD [Primary Care Provider] - 1 Week - Home Medications Comprehensive Discharge Medication List: Ambulatory Orders Amlodipine Besylate 10 mg PO DAILY 02/03/20 Hydrochlorothiazide 25 mg PO DAILY 02/03/20 Irbesartan [Avapro] 300 mg PO DAILY 02/03/20 Potassium Chloride [K-Dur -] 10 meq PO DAILY 02/03/20 Acetaminophen [Tylenol .Regular Strength -] 650 mg PO Q6H PRN tablet 02/07/20 Aspirin [ASA -] 81 mg PO DAILY #30 tab.chew 02/07/20 Atorvastatin Ca [Lipitor] 20 mg PO HS #30 tablet 02/07/20 Pantoprazole Sodium [Protonix -] 40 mg PO DAILY #30 tablet.ec 02/07/20
--- NOTE | 2020-02-07 14:57 | PN ---
Progress Note (short form) - Note Progress Note: cc: chest pain HPI: feels well. no cp, dyspnea, palps, dizziness. Current Medications Generic Name Dose Route Start Last Admin Trade Name José Miguel PRN Reason Stop Dose Admin Acetaminophen 650 mg 02/03/20 23:12 02/03/20 23:37 Tylenol - PO 650 mg Q6H PRN Administration PAIN LEVEL 6-10 Amlodipine Besylate 10 mg 02/04/20 10:00 02/07/20 12:25 Norvasc - PO 10 mg DAILY [facility] Administration Aspirin 325 mg 02/04/20 10:00 02/07/20 12:25 Asa - PO 325 mg DAILY [facility] Administration Atorvastatin Calcium 20 mg 02/04/20 22:00 02/06/20 21:20 Lipitor - PO 20 mg HS [facility] Administration Heparin Sodium (Porcine) 5,000 unit 02/03/20 22:00 02/07/20 12:24 Heparin - SQ 5,000 unit BID [facility] Administration Hydrochlorothiazide 25 mg 02/04/20 10:00 02/07/20 12:25 Hctz - PO 25 mg DAILY [facility] Administration Losartan Potassium 100 mg 02/04/20 10:00 02/07/20 12:24 Cozaar - PO 100 mg DAILY [facility] Administration Pantoprazole Sodium 40 mg 02/04/20 10:00 02/07/20 12:25 Protonix - PO 40 mg DAILY [facility] Administration Potassium Chloride 10 meq 02/04/20 10:00 02/07/20 12:25 K-Dur - PO 10 meq DAILY [facility] Administration Vital Signs Period Temp Pulse Resp BP Sys/Rees Pulse Ox Last 24 Hr 97.7 F-98.4 F 48-96 18-18 123-157/59-80 97-98 Constitutional: Yes: No Distress, Calm Eyes: Yes: Conjunctiva Clear Respiratory: Yes: CTA Bilaterally Gastrointestinal: Yes: Soft (NT) Cardiovascular: Yes: Regular Rate and Rhythm JVD: No Carotid Bruit: No PMI: Non-Displaced Heart Sounds: Yes: S1, S2 (RRR, no murmurs rubs/gall) Edema: No Neurological: Yes: Alert, Oriented not agitated no jaundice, diaphoresis CBC, BMP 02/04/20 08:35 02/05/20 10:45 echo 01/2020 nl LV function, mild MR, mild TR tele: sinus, sinus philip during sleep Assessment/Plan IMP: HTN, chronic Epigastric/ chest pain, atypical features with C.E - REC: 1. trop neg x 3, less likely ACS 2. echo and nuclear stress test both unremarkable here 3. Nighttime sinus philip may be sign of [place], should have outpt testing 4. cont ASA, statin. 5. cont PPI ok for dc from cardiac pov
== END 2020-02-07 15:45 | disposition home or self-care (01) ==
LOC: SUPCPDRO 18:40 → FER 18:40 → FM/S 20:42 → UNDOADMOB 21:19 → INTOOBSV 21:19 → FM/S 21:19
PROVIDERS: ADMIT Internal Medicine; ATTEND Family Medicine
PROC: 3E023GC Introduction of Other Therapeutic Substance into Muscle, Percutaneous Approach (ICD-10-PCS; principal; 2020-02-03)
PROC: 3E033GC Introduction of Other Therapeutic Substance into Peripheral Vein, Percutaneous Approach (ICD-10-PCS; 2020-02-03)
DX: R07.9 Chest pain, unspecified (principal); E78.5 Hyperlipidemia, unspecified; I10 Essential (primary) hypertension; B19.20 Unspecified viral hepatitis C without hepatic coma; I51.7 Cardiomegaly; Z82.49 Family history of ischemic heart disease and other diseases of the circulatory system; I63.9 Cerebral infarction, unspecified; K21.9 Gastro-esophageal reflux disease without esophagitis; R10.13 Epigastric pain
CPT/HCPCS: 36415; 71045-TC-FY; 78452-TC; 80053; 80061; 81003; 82550; 83036; 83721; 83735; 84484; 85025; 85027; 93005; 93017; 93306-TC; 99285-25; A9502; G0378; J1644; J2785; U0003

== ENCOUNTER 2021-02-06 07:55 | Day surgery (SDC) | payer OTHER ==
[2021-01-30 13:01] VITALS: BMI 29.7
[2021-02-06] MEDS ORDERED: CELECOXIB 200 MG CAPSULE PO ONE (08:17)
[2021-02-06] MEDS ORDERED: CEFAZOLIN 2 GM in DEXTROSE 5%-WATER - 50 ML IVPB ONE (08:17)
[2021-02-06] MEDS ORDERED: MIDAZOLAM HCL 2 MG/2 ML SINGLE DOSE VIAL ONE (09:22)
[2021-02-06] MEDS ORDERED: BUPIVACAINE HCL/PF 0.5% (5 MG/ML) 30 ML VIAL IJ ONE ×2 (09:22→10:06)
[2021-02-06] MEDS ORDERED: SODIUM CHLORIDE 0.9% P/F 10 ML VIAL IJ ONE (09:22)
[2021-02-06] MEDS ORDERED: ONDANSETRON 4 MG/2 ML VIAL IVPUSH PRN ×2 (09:44→10:12)
[2021-02-06] MEDS ORDERED: MAG HYDROX/AL HYDROX/SIMETH 30 ML UNIT-DOSE CUP PO PRN (09:44)
[2021-02-06] MEDS ORDERED: LACTATED RINGERS SOLUTION 1,000 ML IV SCH (09:45)
[2021-02-06] MEDS ORDERED: PATIENT'S OWN MEDICATION (NON-FORMULARY) (Irbesartan [Avapro] 300 MG Tablet) PO SCH (10:00)
[2021-02-06] MEDS ORDERED: oxyCODONE HCL 5 MG TABLET PO PRN (10:12)
[2021-02-06] MEDS ORDERED: traMADol HCL 50 MG TABLET PO PRN (10:12)
[2021-02-06] MEDS ORDERED: THROMBIN (RECOMBINANT) 5,000 UNIT VIAL TP ONE (10:38)
[2021-02-06] MEDS ORDERED: ceFAZolin SODIUM 1 GM VIAL ONE (10:38)
[2021-02-06] MEDS ORDERED: BUPIVICAINE 0.25%/MORPH PF/KETOROLAC - 51ML DISP.SYRINGE IA ONE ×4 (11:00→12:08)
[2021-02-06] MEDS ORDERED: TRANEXAMIC ACID 1000 MG/10 ML VIAL IVPUSH ONE (11:00)
[2021-02-06] MEDS ORDERED: ACETAMINOPHEN INJECTION 100 ML IVPB ONE (12:08)
[2021-02-06] MEDS: ACETAMINOPHEN 1000 MG/100 ML VIAL (NON FORMULARY) IVPB ONE ×2 (12:35→13:49)
[2021-02-06] MEDS: HYDROCHLOROTHIAZIDE 25 MG TABLET (FP) PO SCH ×2 (13:47→19:48)
[2021-02-06] MEDS: LOSARTAN POTASSIUM 50 MG TABLET PO SCH ×2 (13:47→19:49)
[2021-02-06] MEDS: amLODIPine BESYLATE 10 MG TABLET (FP) PO SCH ×2 (13:48→19:48)
[2021-02-06] MEDS: MULTIVITAMINS (DAILY MVI) TABLET (FP) PO SCH (13:48)
[2021-02-06] MEDS: LACTATED RINGERS SOLUTION 1,000 ML IV SCH (13:48)
[2021-02-06] MEDS: POTASSIUM CHLORIDE TABS 10 MEQ TABLET.ER (FP) PO SCH ×2 (13:48→19:49)
[2021-02-06] MEDS: PANTOPRAZOLE 40 MG TABLET PO SCH ×2 (13:48→19:48)
[2021-02-06] MEDS: CEFAZOLIN 2 GM/D5W 2 GM/50 ML ML IVPB SCH (17:56)
[2021-02-06] MEDS: SENNOSIDES/DOCUSATE COMBO (SENNA PLUS) TABLET (UD) PO SCH (21:04)
[2021-02-06] MEDS: oxyCODONE HCL 5 MG TABLET PO PRN (21:09)
[2021-02-07] MEDS: CEFAZOLIN 2 GM/D5W 2 GM/50 ML ML IVPB SCH (01:03)
[2021-02-07] MEDS: oxyCODONE HCL 5 MG TABLET PO PRN ×2 (05:39→09:52)
[2021-02-07 05:54] VITALS: BP 114/57; PULSE 70; TEMP 97.5
[2021-02-07] MEDS ORDERED: ASPIRIN 325 MG TABLET PO SCH (08:00)
[2021-02-07] MEDS: SENNOSIDES/DOCUSATE COMBO (SENNA PLUS) TABLET (UD) PO SCH (10:16)
[2021-02-07] MEDS: LOSARTAN POTASSIUM 50 MG TABLET PO SCH (10:16)
[2021-02-07] MEDS: amLODIPine BESYLATE 10 MG TABLET (FP) PO SCH (10:16)
[2021-02-07] MEDS: HYDROCHLOROTHIAZIDE 25 MG TABLET (FP) PO SCH (10:16)
[2021-02-07] MEDS: POTASSIUM CHLORIDE TABS 10 MEQ TABLET.ER (FP) PO SCH (10:16)
[2021-02-07] MEDS: LACTATED RINGERS SOLUTION 1,000 ML IV SCH (10:17)
[2021-02-07] MEDS: MULTIVITAMINS (DAILY MVI) TABLET (FP) PO SCH (10:17)
[2021-02-07] MEDS: PANTOPRAZOLE 40 MG TABLET PO SCH (10:17)
== END 2021-02-07 11:30 | disposition home or self-care (01) ==
LOC: FASUSAT 07:55 → FM/S 11:04 → FASUSAT 02-07 11:30
PROVIDERS: ATTEND Orthopaedic Surgery
PROC: 8E0YXBZ Computer Assisted Procedure of Lower Extremity (ICD-10-PCS; 2021-02-06)
PROC: 8E0Y0CZ Robotic Assisted Procedure of Lower Extremity, Open Approach (ICD-10-PCS; 2021-02-06)
PROC: 0SRC0L9 Replacement of Right Knee Joint with Medial Unicondylar Synthetic Substitute, Cemented, Open Approach (ICD-10-PCS; principal; 2021-02-06 10:15)
DX: M17.11 Unilateral primary osteoarthritis, right knee (principal)
CPT/HCPCS: 20985; 27446; C1776; S2900; 73560-TC-RT-FY; 94760; 97010-GP; 97116-GP; 97163-GP; J0131

== ENCOUNTER 2021-08-25 23:23 | Observation (INO) | payer OTHER ==
[2021-08-25 23:36] VITALS: BMI 29.7
[2021-08-25 23:57] LABS: BASO % 0.8 % (0-2.0); EOS % 2.6 % (0-4.5); HEMATOCRIT 45.9 % (35.4-49); HEMOGLOBIN 16.5 GM/dL (11.7-16.9); LYMPH % 29.1 % (8-40); MCH 34.3 pg (25.7-33.7); MCHC 35.8 g/dl (32.0-35.9); MEAN CELL VOLUME 95.7 fl (80-96); MEAN PLT VOLUME 9.1 fl (7.5-11.1); MONO % 8.6 % (3.8-10.2); NEUT % 58.9 % (42.8-82.8); PLATELET COUNT 189 10^3/uL (134-434); RDW 13.2 % (11.9-15.9); WHITE BLOOD COUNT 7.2 K/mm3 (4.0-10.0)
[2021-08-26 00:20] LABS: CHLORIDE 104 mmol/L (98-107); SODIUM 140 mmol/L (136-145)
[2021-08-26 00:22] LABS: ANION GAP 9 MMOL/L (8-16); BLOOD UREA NITROGEN 14.5 mg/dL (7-18); CALCIUM 9.1 mg/dL (8.5-10.1); CO2 27 mmol/L (21-32)
[2021-08-26 00:23] LABS: ALBUMIN 4.3 g/dl (3.4-5.0); GLUCOSE,RANDOM 103 mg/dL (74-106)
[2021-08-26 00:26] LABS: CREATININE 1.3 mg/dL (0.55-1.3); SGOT/AST 12 U/L (15-37); SGPT/ALT 19 U/L (13-61)
[2021-08-26 00:27] LABS: BILIRUBIN,TOTAL 0.7 mg/dL (0.2-1); TOT PROT 7.6 g/dl (6.4-8.2)
[2021-08-26 00:28] LABS: ALK PHOS 73 U/L (45-117)
[2021-08-26 00:56] LABS: INR 1.12 (0.83-1.09); PROTHROMBIN TIME (PATIENT) 13.1 SEC (9.7-13.0)
[2021-08-26 00:59] LABS: ACTIVATED PTT 30.6 SECONDS (25.2-36.5)
[2021-08-26] MEDS ORDERED: APIXABAN 5 MG TABLET PO SCH (01:00)
[2021-08-26] MEDS ORDERED: APIXABAN 5 MG TABLET ONE (01:35)
[2021-08-26] MEDS ORDERED: ACETAMINOPHEN 325 MG TABLET (FP) PO PRN (02:57)
[2021-08-26 06:23] VITALS: TEMP 97.8
[2021-08-26 08:52] LABS: HEMOGLOBIN 16.2 GM/dL (11.7-16.9); MCH 34.1 pg (25.7-33.7); MCHC 35.9 g/dl (32.0-35.9); MEAN CELL VOLUME 94.8 fl (80-96); MEAN PLT VOLUME 8.9 fl (7.5-11.1); PLATELET COUNT 189 10^3/uL (134-434); RBC 4.74 M/mm3 (4.00-5.60); WHITE BLOOD COUNT 5.9 K/mm3 (4.0-10.0)
[2021-08-26 09:15] LABS: CALCIUM 8.9 mg/dL (8.5-10.1)
[2021-08-26 09:16] LABS: BLOOD UREA NITROGEN 11.8 mg/dL (7-18); MAGNESIUM 2.2 mg/dL (1.8-2.4)
[2021-08-26 09:19] LABS: CREATININE 1.2 mg/dL (0.55-1.3); PHOSPHOROUS 2.6 mg/dL (2.5-4.9)
[2021-08-26] MEDS ORDERED: ASPIRIN COATED 81 MG TABLET.EC ONE (11:46)
[2021-08-26] MEDS ORDERED: LOSARTAN POTASSIUM 50 MG TABLET ONE (11:47)
[2021-08-26] MEDS ORDERED: ENOXAPARIN NA (PORCINE) 40 MG/0.4 ML DISP.SYRIN SQ ONE (11:47)
[2021-08-26] MEDS ORDERED: amLODIPine BESYLATE 5 MG TABLET (FP) ONE (11:47)
[2021-08-26] MEDS ORDERED: HYDROCHLOROTHIAZIDE 25 MG TABLET (FP) ONE (11:47)
[2021-08-26] MEDS: HYDROCHLOROTHIAZIDE 25 MG TABLET (FP) PO SCH (12:01)
[2021-08-26] MEDS: LOSARTAN POTASSIUM 50 MG TABLET PO SCH (12:01)
[2021-08-26] MEDS: ENOXAPARIN NA (PORCINE) 40 MG/0.4 ML DISP.SYRIN SQ SCH (12:01)
[2021-08-26] MEDS: ASPIRIN COATED 81 MG TABLET.EC PO SCH (12:01)
[2021-08-26] MEDS: amLODIPine BESYLATE 5 MG TABLET (FP) PO SCH (12:01)
[2021-08-27] MEDS ORDERED: HYDROCHLOROTHIAZIDE 25 MG TABLET (FP) ONE (08:57)
[2021-08-27] MEDS ORDERED: LOSARTAN POTASSIUM 50 MG TABLET ONE (08:57)
[2021-08-27] MEDS ORDERED: amLODIPine BESYLATE 5 MG TABLET (FP) ONE (08:57)
[2021-08-27] MEDS ORDERED: ASPIRIN COATED 81 MG TABLET.EC ONE (08:57)
[2021-08-27] MEDS ORDERED: ENOXAPARIN NA (PORCINE) 60 MG/0.6 ML DISP.SYRIN SQ ONE (08:58)
[2021-08-27] MEDS: LOSARTAN POTASSIUM 50 MG TABLET PO SCH (09:21)
[2021-08-27] MEDS: ASPIRIN COATED 81 MG TABLET.EC PO SCH (09:21)
[2021-08-27] MEDS: HYDROCHLOROTHIAZIDE 25 MG TABLET (FP) PO SCH (09:21)
[2021-08-27] MEDS: ENOXAPARIN NA (PORCINE) 40 MG/0.4 ML DISP.SYRIN SQ SCH (09:21)
[2021-08-27] MEDS: amLODIPine BESYLATE 5 MG TABLET (FP) PO SCH (09:21)
[2021-08-27 13:24] VITALS: BP 140/87; PULSE 90
== END 2021-08-27 13:20 | disposition home or self-care (01) ==
LOC: JER 23:23 → INTOOBSV 08-26 01:52 → JERBED 08-26 01:52
PROVIDERS: ADMIT Internal Medicine; ATTEND Family Medicine
PROC: 3E013GC Introduction of Other Therapeutic Substance into Subcutaneous Tissue, Percutaneous Approach (ICD-10-PCS; principal; 2021-08-26)
DX: R07.89 Other chest pain (principal); I10 Essential (primary) hypertension; I45.81 Long QT syndrome; E78.5 Hyperlipidemia, unspecified; K21.9 Gastro-esophageal reflux disease without esophagitis; Z86.19 Personal history of other infectious and parasitic diseases; Z86.73 Personal history of transient ischemic attack (TIA), and cerebral infarction without residual deficits
CPT/HCPCS: 36415; 71046-TC-FY; 80048; 80053; 80061; 82550; 83036; 83735; 84100; 84443; 84484; 85025; 85027; 85610; 85730; 86850; 86900; 86901; 93005; 93010; 96372; 99285-25; C9803; G0378; U0003; U0005

== ENCOUNTER 2023-05-23 10:20 | Emergency (ER) | payer OTHER ==
[2023-05-23 10:40] VITALS: BMI 30.4
[2023-05-23] MEDS ORDERED: METOCLOPRAMIDE HCL INJECTION 10 MG/2 ML VIAL IVPUSH ONE (10:47)
[2023-05-23] MEDS ORDERED: MECLIZINE HCL 25 MG TABLET (FP) PO ONE (10:47)
[2023-05-23] MEDS ORDERED: METOCLOPRAMIDE HCL INJECTION 10 MG/2 ML VIAL ONE (10:52)
[2023-05-23] MEDS ORDERED: MECLIZINE HCL 25 MG TABLET (FP) ONE (10:52)
[2023-05-23 11:05] LABS: HEMOGLOBIN 14.7 G/dL (11.7-16.9); MCH 34.4 pg (25.7-33.7); MCHC 34.1 g/dl (32.0-35.9); MEAN CELL VOLUME 100.7 fl (80-96); MEAN PLT VOLUME 8.5 fl (7.5-11.1); PLATELET COUNT 139.5 10^3/uL (134-434); RBC 4.27 10^6/uL (4.00-5.60); RDW 14.5 % (11.9-15.9); WHITE BLOOD COUNT 3.8 10^3/uL (4.0-10.8)
[2023-05-23 11:11] LABS: PLATELET ESTIMATE ADEQUATE
[2023-05-23 11:12] LABS: ALBUMIN 4.3 g/dl (3.4-5.0); CALCIUM 9.2 mg/dl (8.5-10.1); CREATININE 1.3 mg/dl (0.6-1.3); MAGNESIUM 1.8 mg/dL (1.8-2.4); POTASSIUM 4.2 mmol/L (3.5-5.1); SGOT/AST 17.3 U/L (15-37); SGPT/ALT 12.9 U/L (7-52); TOT PROT 6.8 g/dl (6.4-8.2)
[2023-05-23 11:54] VITALS: RESP 16
[2023-05-23 12:15] LABS: BILIRUBIN,TOTAL 0.8 mg/dL (0.2-1)
[2023-05-23 13:05] VITALS: BP 161/97
[2023-05-23 13:31] VITALS: PULSE 55
[2023-05-23 14:49] VITALS: TEMP 98
== END 2023-05-23 14:55 | disposition home or self-care (01) ==
LOC: FER 10:20
PROC: 3E033GC Introduction of Other Therapeutic Substance into Peripheral Vein, Percutaneous Approach (ICD-10-PCS; principal; 2023-05-23)
DX: R06.02 Shortness of breath (principal); R42 Dizziness and giddiness; R11.0 Nausea; Z20.822 Contact with and (suspected) exposure to COVID-19
CPT/HCPCS: 0241U-QW; 36415; 70450-TC; 71045-TC-FY; 80053; 81003; 83735; 84484; 85027; 93005; 99285-25

== ENCOUNTER 2024-01-06 10:41 | Emergency (ER) | payer OTHER ==
[2024-01-06 10:56] VITALS: RESP 18; TEMP 99; BMI 34.7
[2024-01-06 12:02] LABS: HEMATOCRIT 49.3 % (35.4-49); HEMOGLOBIN 17.1 G/dL (11.7-16.9); MCH 34.6 pg (25.7-33.7); MCHC 34.6 g/dl (32.0-35.9); MEAN PLT VOLUME 9.6 fl (7.5-11.1); PLATELET COUNT 157.6 10^3/uL (134-434); RBC 4.93 10^6/uL (4.00-5.60); WHITE BLOOD COUNT 5.8 10^3/uL (4.0-10.8)
[2024-01-06 12:10] LABS: ALBUMIN 4.5 g/dl (3.4-5.0); BILIRUBIN,TOTAL 0.9 mg/dl (0.2-1); CALCIUM 9.7 mg/dl (8.5-10.1); POTASSIUM 4.2 mmol/L (3.5-5.1)
[2024-01-06 12:23] VITALS: BP 156/96; PULSE 62
[2024-01-06 12:36] LABS: PLATELET ESTIMATE ADEQUATE
== END 2024-01-06 13:48 | disposition home or self-care (01) ==
LOC: FER 10:41
DX: I10 Essential (primary) hypertension (principal); R20.2 Paresthesia of skin
CPT/HCPCS: 36415; 80053; 85027; 99283-25

== ENCOUNTER 2024-09-26 12:14 | Emergency (ER) | payer OTHER ==
[2024-09-26 12:26] VITALS: BP 149/99; PULSE 65; RESP 18; TEMP 97.2; BMI 29.7
[2024-09-26] MEDS ORDERED: diphenhydrAMINE HCL 25 MG CAPSULE (FP) PO ONE (12:32)
[2024-09-26] MEDS ORDERED: DEXAMETHASONE SOD PHOSPHATE 10 MG/1 ML VIAL ONE (12:32)
[2024-09-26] MEDS ORDERED: FAMOTIDINE 20 MG TABLET ONE (12:37)
[2024-09-26] MEDS: diphenhydrAMINE HCL 25 MG CAPSULE (FP) PO ONE (12:50)
[2024-09-26] MEDS: FAMOTIDINE 20 MG TABLET PO ONE (12:50)
[2024-09-26] MEDS: DEXAMETHASONE SOD PHOSPHATE 10 MG/1 ML VIAL IM ONE (12:50)
[2024-09-26 13:21] LABS: HEMATOCRIT 50.1 % (35.4-49); HEMOGLOBIN 17.2 G/dL (11.7-16.9); MCHC 34.4 g/dl (32.0-35.9); MEAN CELL VOLUME 98.9 fl (80-96); MEAN PLT VOLUME 9.5 fl (7.5-11.1); PLATELET COUNT 164.1 10^3/uL (134-434); RBC 5.07 10^6/uL (4.00-5.60); RDW 12.9 % (11.9-15.9); WHITE BLOOD COUNT 7.7 10^3/uL (4.0-10.8)
[2024-09-26 13:35] LABS: ALBUMIN 4.5 g/dl (3.4-5.0); ALK PHOS 55 U/L (45-117); ANION GAP 9 mmol/L (4-13); BILIRUBIN,TOTAL 1.1 mg/dl (0.2-1); CALCIUM 9.7 mg/dl (8.5-10.1); CHLORIDE 102 mmol/L (98-107); CO2 24 mmol/L (21-32); GLUCOSE,RANDOM 108 mg/dl (74-106); POTASSIUM 4.2 mmol/L (3.5-5.1); SGOT/AST 15 U/L (15-37); SGPT/ALT 21 U/L (7-52); SODIUM 135 mmol/L (136-145); TOT PROT 6.8 g/dl (6.4-8.2)
== END 2024-09-26 14:18 | disposition home or self-care (01) ==
LOC: FER 12:14
PROC: 3E023GC Introduction of Other Therapeutic Substance into Muscle, Percutaneous Approach (ICD-10-PCS; principal; 2024-09-26)
DX: R21 Rash and other nonspecific skin eruption (principal); L29.9 Pruritus, unspecified; H05.222 Edema of left orbit; T78.40XA Allergy, unspecified, initial encounter
CPT/HCPCS: 36415; 80053; 85027; 99284-25; J1100

== ENCOUNTER 2025-03-19 07:43 | Emergency (ER) | payer OTHER ==
[2025-03-19 07:53] VITALS: TEMP 98; BMI 31.3
[2025-03-19 08:54] LABS: ABSOLUTE IMMATURE GRANULOCYTES 0.02 x10^3/uL (0.0-0.031); BASOPHILS # 0.06 x10^3/uL (0.01-0.08); EOSINOPHIL % 5.7 % (0.8-7.0); EOSINOPHILS # 0.35 x10^3/uL (0.04-0.54); MCHC 33.9 g/dl (32.3-36.5); MEAN CELL VOLUME 96.3 fl (79.0-92.2); MEAN PLT VOLUME 11.0 fl (9.4-12.4); MONOCYTE # 0.63 x10^3/uL (0.30-0.82); MONOCYTE % 10.3 % (5.3-12.2); RDW 13.1 % (12.2-16.6)
[2025-03-19 09:02] LABS: INR 1.2 (0.83-1.09); PROTHROMBIN TIME (PATIENT) 13.1 SEC (9.7-13.0)
[2025-03-19 09:05] LABS: ACTIVATED PTT 30.4 SECONDS (25.2-36.5)
[2025-03-19 09:33] LABS: CO2 32.0 mmol/L (21-32); GLUCOSE,RANDOM 108.0 mg/dL (74-106)
[2025-03-19 09:36] LABS: CREATININE 0.9 mg/dL (0.55-1.3); SGOT/AST 19.0 U/L (15-37); SGPT/ALT 22.0 U/L (13-61)
[2025-03-19 09:38] LABS: TOT PROT 6.4 g/dl (6.4-8.2)
[2025-03-19 09:39] LABS: ALK PHOS 72.0 U/L (45-117)
[2025-03-19 10:28] VITALS: RESP 20
[2025-03-19 11:51] VITALS: BP 172/86; PULSE 61
[2025-03-19 13:17] LABS: HIV INTERPRETATION NEGATIVE (NEGATIVE)
[2025-03-19 13:26] LABS: HCV DIAGNOSTIC IN-HOUSE W/RFLX REACTIVE (NONREACTIVE)
== END 2025-03-19 11:51 | disposition home or self-care (01) ==
LOC: JER 07:43
DX: R51.9 Headache, unspecified (principal); I10 Essential (primary) hypertension; R42 Dizziness and giddiness; M25.462 Effusion, left knee
CPT/HCPCS: 36415; 70450-TC; 71045-TC-FY; 80053; 83735; 84443; 84484; 85025; 85610; 85730; 86803; 86850; 86900; 86901; 87389; 87522; 93005; 93010; 99285-25

== ENCOUNTER 2025-04-23 13:06 | Emergency (ER) | payer OTHER ==
[2025-04-23 13:13] VITALS: TEMP 98.6; BMI 33.3
[2025-04-23] MEDS ORDERED: amLODIPine BESYLATE 10 MG TABLET (FP) ONE (14:23)
[2025-04-23 14:36] VITALS: BP 159/99; PULSE 81; RESP 18
[2025-04-23] MEDS: amLODIPine BESYLATE 10 MG TABLET (FP) PO ONE (14:36)
== END 2025-04-23 14:44 | disposition home or self-care (01) ==
LOC: JER 13:06
DX: I10 Essential (primary) hypertension (principal); R23.2 Flushing
CPT/HCPCS: 93005; 93010; 99283-25